=== PATIENT | female | born 1965 | race African-American/Black ===

== ENCOUNTER 2016-08-25 21:06 | Emergency (ER) | payer MEDICAID ==
[~2016-08-25] VITALS: Ht 162.6 cm; Wt 73.0 kg
[~2016-08-25 21:06] MED LIST: AMLO10TA80 PO; ATROVENT INH; FLUT1DIS3 IH; HYDR-519 PO; IPRA3AMP9 INH; P50 PO; THEO200T37 PO; singular PO
[2016-08-25] MEDS ORDERED: ALBUTEROL (0.083%) 2.5MG/3ML NEB HHN STA ×2 (21:34→22:46)
[2016-08-25 22:10] LABS: EOSINOPHILS % 4.5 % (0.0-5.0); HEMATOCRIT. 34.9 % (36.0-48.0); HEMOGLOBIN. 11.2 g/dL (12.0-16.0); LYMPHOCYTES % 17.2 % (20.0-50.0); MEAN CORPUSCULAR HEMOGLOBIN 27.9 pg (28.0-32.0); MEAN CORPUSCULAR HGB CONC 32.1 g/dL (31.0-37.0); MEAN CORPUSCULAR VOLUME 86.9 fL (81.0-99.0); MEAN PLATELET VOLUME 8.9 fl (7.4-10.4); MONOCYTES % 8.8 % (2.0-8.0); NEUTROPHILS % 68.5 % (40.0-76.0); PLATELET 209 x1000/uL (130-400); RED BLOOD CELL COUNT 4.01 mill/uL (4.2-5.4); RED CELL DISTRIBUTION WIDTH 15.8 % (11.6-14.6); WHITE BLOOD COUNT 7.1 x1000/uL (4.5-11.0)
[2016-08-25 22:17] LABS: ALBUMIN 3.2 g/dL (3.4-5.0); ANION GAP 9; CALCIUM 8.8 mg/dL (8.5-10.1); CARBON DIOXIDE 37 mEq/L (21-32); CHLORIDE 98 mEq/L (98-107); INDEX HEMOLYSI 1 (1-3); INDEX ICTERIC 1 (1-4); INDEX LIPEMIC 1 (1-3); UREA NITROGEN BLOOD 5 mg/dL (7-21)
[2016-08-25 22:22] LABS: ALANINE AMINOTRANSFERASE 7 IU/L (13-61); THEOPHYLLINE 5.8 ug/mL (10-20); eGFR > 60 mL/min (>60)
[2016-08-25 22:24] LABS: NT PRO B-TYPE NATRIURETIC PEP 323 pg/mL (5-125); TROPONIN I < 0.02 ng/mL (0.00-0.04)
[2016-08-25] MEDS ORDERED: IPRATROPIUM BROMIDE (0.02%) 0.5MG/2.5ML NEB HHN STA (22:46)
[2016-08-25] MEDS ORDERED: SODIUM CHLORIDE 0.9% 1,000 ML IV ONE (22:46)
[2016-08-25] MEDS ORDERED: DEXAMETHASONE 10MG/ML 1ML VIAL IV ONE (23:00)
[2016-08-25] MEDS ORDERED: IPRATROPIUM/ALBUTEROL 0.5-3(2.5)MG/3ML NEB ONE (23:15)
[2016-08-25] MEDS ORDERED: IPRATROPIUM BROMIDE (0.02%) 0.5MG/2.5ML NEB ONE (23:15)
[2016-08-26 01:59] VITALS: BP 101/62
== END 2016-08-26 02:04 | disposition home or self-care (01) ==
LOC: ER 21:06
DX: J44.9 Chronic obstructive pulmonary disease, unspecified (principal); R53.1 Weakness; T50.905A Adverse effect of unspecified drugs, medicaments and biological substances, initial encounter; Z79.899 Other long term (current) drug therapy; Y92.89 Other specified places as the place of occurrence of the external cause
CPT/HCPCS: 36415; 71010; 80053; 80198; 83880; 84484; 85025; 93005; 94640; 96361; 96374; 99285; J1100; J7611; Z7610; J7030; J7620

== ENCOUNTER 2016-08-27 22:27 | Inpatient (IN) | payer MEDICAID, OTHER ==
[~2016-08-27] VITALS: Ht 175.3 cm; Wt 72.1 kg
[2016-08-27] MEDS ORDERED: ALBUTEROL (0.083%) 2.5MG/3ML NEB HHN STA (23:20)
[2016-08-27] MEDS ORDERED: IPRATROPIUM BROMIDE (0.02%) 0.5MG/2.5ML NEB HHN STA (23:20)
[2016-08-27 23:51] LABS: BASOPHILS % 1.1 % (0.0-2.0); EOSINOPHILS % 5.1 % (0.0-5.0); HEMATOCRIT. 34.2 % (36.0-48.0); LYMPHOCYTES % 28.4 % (20.0-50.0); MEAN CORPUSCULAR HEMOGLOBIN 27.7 pg (28.0-32.0); MEAN CORPUSCULAR VOLUME 86.3 fL (81.0-99.0); MEAN PLATELET VOLUME 9.2 fl (7.4-10.4); MONOCYTES % 8.2 % (2.0-8.0); NEUTROPHILS % 57.2 % (40.0-76.0); PLATELET 201 x1000/uL (130-400); RED BLOOD CELL COUNT 3.96 mill/uL (4.2-5.4); RED CELL DISTRIBUTION WIDTH 15.7 % (11.6-14.6); WHITE BLOOD COUNT 7.1 x1000/uL (4.5-11.0)
[2016-08-28 00:02] LABS: BG BASE EXCESS 7.1 mmol/L (-2.0-2.0); BG CARBOXYHEMOGLOBIN 0.5 % (0.5-1.5); BG DEOXYHEMOGLOBIN 3.8 % (0.0-5.0); BG FRACTION INSPIRED OXYGEN 28; BG HCO3 ACT 34.7 mmol/L (22.0-26.0); BG METHEMOGLOBIN 0.2 % (0.0-1.5); BG OXYGEN SATURATION 96.2 % (92.0-98.5); BG OXYHEMOGLOBIN 95.5 % (94.0-97.0); BG PH 7.345 (7.350-7.450); BG PO2 91.8 mmHg (75.0-100.0); BG SAMPLE SITE RIGHT BRACHIAL; BG VENT MODE NASAL CANNULA
[2016-08-28 00:09] LABS: ANION GAP 8; CALCIUM 8.9 mg/dL (8.5-10.1); CARBON DIOXIDE 35 mEq/L (21-32); CHLORIDE 101 mEq/L (98-107); UREA NITROGEN BLOOD 8 mg/dL (7-21); eGFR > 60 mL/min (>60)
[2016-08-28 00:10] LABS: NT PRO B-TYPE NATRIURETIC PEP 354 pg/mL (5-125); TROPONIN I < 0.02 ng/mL (0.00-0.04)
[2016-08-28 00:12] LABS: INDEX HEMOLYSI 1 (1-3); INDEX ICTERIC 1 (1-4); INDEX LIPEMIC 1 (1-3)
[2016-08-28] MEDS ORDERED: HYDROCODONE/ACETAMINOPHEN 5/325MG TABLET PO ONE (05:15)
[2016-08-28 12:07] VITALS: BP 97/65
[2016-08-28 13:38] VITALS: BP 101/60
[2016-08-28 15:34] VITALS: BP 99/60
[2016-08-28] MEDS ORDERED: DIPHENHYDRAMINE 50MG/ML VIAL IV PRN (18:00)
[2016-08-28] MEDS ORDERED: IPRATROPIUM/ALBUTEROL 0.5-3(2.5)MG/3ML NEB INH PRN (18:00)
[2016-08-28] MEDS ORDERED: CLONIDINE 0.1MG TABLET PO PRN (18:00)
[2016-08-28] MEDS ORDERED: ONDANSETRON HCL 4MG/2ML VIAL IV PRN (18:00)
[2016-08-28] MEDS ORDERED: ACETAMINOPHEN 325MG TABLET PO PRN (18:00)
[2016-08-28] MEDS ORDERED: HYDROCODONE/ACETAMINOPHEN 5/325MG TABLET PO PRN (18:00)
[2016-08-28] MEDS ORDERED: METHYLPREDNISOLONE SOD SUCC 125 MG/2 ML VIAL IV SCH (18:30)
[2016-08-28 20:00] VITALS: BP 110/65
[2016-08-28] MEDS: IPRATROPIUM/ALBUTEROL 0.5-3(2.5)MG/3ML NEB INH SCH (20:25)
[2016-08-28] MEDS: METHYLPREDNISOLONE SOD SUCC 40 MG/ML VIAL IV SCH (21:24)
[2016-08-28] MEDS: HYDROCODONE/ACETAMINOPHEN 10/325MG TABLET PO PRN (21:32)
[2016-08-29] VITALS: BP 101/62
[2016-08-29] MEDS: IPRATROPIUM/ALBUTEROL 0.5-3(2.5)MG/3ML NEB INH SCH ×6 (00:42→20:30)
[2016-08-29 04:00] VITALS: BP 118/60
[2016-08-29] MEDS: HYDROCODONE/ACETAMINOPHEN 10/325MG TABLET PO PRN ×3 (04:13→18:23)
[2016-08-29] MEDS: METHYLPREDNISOLONE SOD SUCC 40 MG/ML VIAL IV SCH (06:00)
[2016-08-29 06:16] LABS: BASOPHILS % 0.4 % (0.0-2.0); EOSINOPHILS % 0.1 % (0.0-5.0); HEMATOCRIT. 33.7 % (36.0-48.0); HEMOGLOBIN. 10.7 g/dL (12.0-16.0); MEAN CORPUSCULAR HEMOGLOBIN 27.6 pg (28.0-32.0); MEAN CORPUSCULAR HGB CONC 31.7 g/dL (31.0-37.0); MEAN PLATELET VOLUME 9.4 fl (7.4-10.4); MONOCYTES % 1.8 % (2.0-8.0); NEUTROPHILS % 87.7 % (40.0-76.0); PLATELET 192 x1000/uL (130-400); RED BLOOD CELL COUNT 3.88 mill/uL (4.2-5.4); RED CELL DISTRIBUTION WIDTH 15.3 % (11.6-14.6); WHITE BLOOD COUNT 4.2 x1000/uL (4.5-11.0)
[2016-08-29 07:08] LABS: ALANINE AMINOTRANSFERASE 12 IU/L (13-61); ALBUMIN 2.9 g/dL (3.4-5.0); ANION GAP 9; CALCIUM 8.7 mg/dL (8.5-10.1); CARBON DIOXIDE 36 mEq/L (21-32); CHLORIDE 98 mEq/L (98-107); INDEX HEMOLYSI 1 (1-3); INDEX ICTERIC 1 (1-4); INDEX LIPEMIC 1 (1-3); UREA NITROGEN BLOOD 7 mg/dL (7-21); eGFR > 60 mL/min (>60)
[2016-08-29 08:00] VITALS: BP 100/57
[2016-08-29] MEDS: BUDESONIDE 0.5MG/2ML NEB HHN SCH ×3 (08:40→20:30)
[2016-08-29] MEDS ORDERED: MEDICATION NOT ON FORMULARY EA (Fluticasone/Salmeterol (Advair 250-50 Diskus) 1 DISK) IH SCH (09:00)
[2016-08-29] MEDS: AMLODIPINE 10MG TABLET PO SCH (09:00)
[2016-08-29 12:00] VITALS: BP 106/61
[2016-08-29] MEDS: DEXAMETHASONE 4MG/ML 1ML VIAL IV SCH ×2 (12:48→18:21)
[2016-08-29 16:00] VITALS: BP 108/60
[2016-08-29 20:38] VITALS: BP 95/69
[2016-08-30] VITALS (7 sets, daily range): BP systolic 95–117; BP diastolic 50–71
[2016-08-30] MEDS: DEXAMETHASONE 4MG/ML 1ML VIAL IV SCH ×5 (00:14→23:23)
[2016-08-30] MEDS: IPRATROPIUM/ALBUTEROL 0.5-3(2.5)MG/3ML NEB INH SCH ×6 (00:25→20:02)
[2016-08-30] MEDS: HYDROCODONE/ACETAMINOPHEN 10/325MG TABLET PO PRN ×2 (00:26→14:04)
[2016-08-30] MEDS: BUDESONIDE 0.5MG/2ML NEB HHN SCH ×2 (08:21→20:02)
[2016-08-30] MEDS: AMLODIPINE 10MG TABLET PO SCH (09:00)
[2016-08-30] MEDS ORDERED: DEXAMETHASONE 4MG/ML 1ML VIAL IV SCH (18:00)
[2016-08-31] VITALS: BP 107/59
[2016-08-31] MEDS: IPRATROPIUM/ALBUTEROL 0.5-3(2.5)MG/3ML NEB INH SCH ×6 (01:18→21:02)
[2016-08-31 04:00] VITALS: BP 106/67
[2016-08-31] MEDS: HYDROCODONE/ACETAMINOPHEN 10/325MG TABLET PO PRN (06:33)
[2016-08-31] MEDS: DEXAMETHASONE 4MG/ML 1ML VIAL IV SCH ×5 (06:33→23:09)
[2016-08-31 06:53] LABS: ANION GAP 8; CALCIUM 8.8 mg/dL (8.5-10.1); CARBON DIOXIDE 36 mEq/L (21-32); CHLORIDE 98 mEq/L (98-107); INDEX HEMOLYSI 1 (1-3); INDEX ICTERIC 1 (1-4); INDEX LIPEMIC 1 (1-3); UREA NITROGEN BLOOD 7 mg/dL (7-21); eGFR > 60 mL/min (>60)
[2016-08-31 07:18] LABS: HEMATOCRIT. 32.2 % (36.0-48.0); HEMOGLOBIN. 10.4 g/dL (12.0-16.0); MEAN CORPUSCULAR HEMOGLOBIN 27.3 pg (28.0-32.0); MEAN CORPUSCULAR HGB CONC 32.4 g/dL (31.0-37.0); MEAN CORPUSCULAR VOLUME 84.5 fL (81.0-99.0); MEAN PLATELET VOLUME 9.5 fl (7.4-10.4); PLATELET 195 x1000/uL (130-400); RED BLOOD CELL COUNT 3.81 mill/uL (4.2-5.4); RED CELL DISTRIBUTION WIDTH 15.8 % (11.6-14.6); WHITE BLOOD COUNT 7.2 x1000/uL (4.5-11.0)
[2016-08-31 07:35] LABS: DIFFERENTIAL COMMENT 1
[2016-08-31 07:51] VITALS: BP 103/60
[2016-08-31] MEDS: BUDESONIDE 0.5MG/2ML NEB HHN SCH ×3 (08:00→21:01)
[2016-08-31] MEDS: AMLODIPINE 10MG TABLET PO SCH (09:00)
[2016-08-31 11:59] VITALS: BP 100/60
[2016-08-31 16:00] VITALS: BP 99/62
[2016-08-31 20:00] VITALS: BP 102/65
[2016-08-31 20:49] LABS: GIANT PLATELETS FEW; PLATELET ESTIMATE NORMAL
[2016-08-31 20:50] LABS: ANISOCYTOSIS 1+; HYPOCHROMASIA 1+
[2016-09-01] VITALS: BP 94/60
[2016-09-01] MEDS: HYDROCODONE/ACETAMINOPHEN 10/325MG TABLET PO PRN ×2 (00:21→21:37)
[2016-09-01] MEDS: IPRATROPIUM/ALBUTEROL 0.5-3(2.5)MG/3ML NEB INH SCH ×5 (00:45→20:20)
[2016-09-01 04:00] VITALS: BP 102/71
[2016-09-01] MEDS: DEXAMETHASONE 4MG/ML 1ML VIAL IV SCH ×3 (05:25→18:35)
[2016-09-01 08:00] VITALS: BP 105/57
[2016-09-01] MEDS: AMLODIPINE 10MG TABLET PO SCH (08:55)
[2016-09-01] MEDS: BUDESONIDE 0.5MG/2ML NEB HHN SCH (09:14)
[2016-09-01 12:06] VITALS: BP 103/61
[2016-09-01 16:00] VITALS: BP 92/50
[2016-09-01 20:00] VITALS: BP 104/69
[2016-09-02] VITALS: BP 97/57
[2016-09-02] MEDS: IPRATROPIUM/ALBUTEROL 0.5-3(2.5)MG/3ML NEB INH SCH ×3 (00:05→08:00)
[2016-09-02] MEDS: DEXAMETHASONE 4MG/ML 1ML VIAL IV SCH ×2 (01:32→06:31)
[2016-09-02 04:00] VITALS: BP 103/60
[2016-09-02 08:00] VITALS: BP 101/59
[2016-09-02] MEDS: AMLODIPINE 10MG TABLET PO SCH (09:00)
[2016-09-02 09:16] LABS: HEMATOCRIT. 35.5 % (36.0-48.0); HEMOGLOBIN. 11.4 g/dL (12.0-16.0); MEAN CORPUSCULAR HEMOGLOBIN 27.5 pg (28.0-32.0); MEAN CORPUSCULAR VOLUME 85.7 fL (81.0-99.0); MEAN PLATELET VOLUME 9.4 fl (7.4-10.4); PLATELET 210 x1000/uL (130-400); RED BLOOD CELL COUNT 4.14 mill/uL (4.2-5.4); WHITE BLOOD COUNT 9.3 x1000/uL (4.5-11.0)
[2016-09-02 09:21] LABS: DIFFERENTIAL COMMENT 1
[2016-09-02 09:26] LABS: ANION GAP 11; CARBON DIOXIDE 34 mEq/L (21-32); CHLORIDE 99 mEq/L (98-107); INDEX HEMOLYSI 1 (1-3); INDEX ICTERIC 1 (1-4); INDEX LIPEMIC 1 (1-3); UREA NITROGEN BLOOD 9 mg/dL (7-21); eGFR > 60 mL/min (>60)
[2016-09-02 11:25] LABS: PLATELET ESTIMATE NORMAL
[2016-09-02 12:00] VITALS: BP 96/57
[2016-09-02 14:06] VITALS: BP 96/57
[2016-09-17] MEDS ORDERED: IPRA3AMP9 INH (14:40)
[2016-09-17] MEDS ORDERED: METH4TAB17 PO (14:40)
[2016-09-17] MEDS ORDERED: singular PO (14:40)
[2016-09-17] MEDS ORDERED: FLUT1DIS3 IH (14:40)
[2016-09-17] MEDS ORDERED: AMLO10TA80 PO (14:40)
== END 2016-09-02 14:35 | disposition home or self-care (01) | DRG 140 ==
LOC: ER 22:28 → 6WST 08-28 05:18
PROVIDERS: ADMIT Internal Medicine; ATTEND Internal Medicine
DX: J44.1 Chronic obstructive pulmonary disease with (acute) exacerbation (principal); J96.00 Acute respiratory failure, unspecified whether with hypoxia or hypercapnia; E11.65 Type 2 diabetes mellitus with hyperglycemia; Z99.81 Dependence on supplemental oxygen; I10 Essential (primary) hypertension; D64.9 Anemia, unspecified; F20.0 Paranoid schizophrenia; Z87.891 Personal history of nicotine dependence; Z91.14 Patient's other noncompliance with medication regimen; Z79.899 Other long term (current) drug therapy
CPT/HCPCS: 36415; 36600; 71010; 80048; 80053; 82375; 82805; 83605; 83880; 84484; 85025; 87040; 87086; 93005; 93970; 94640; 94664; 99285; C1893; J1100; J1200; J2920; J7611; J7620; J7626

== ENCOUNTER 2016-10-13 18:48 | Emergency (ER) | payer MEDICAID, OTHER ==
[~2016-10-13] VITALS: Ht 177.8 cm; Wt 80.0 kg
[~2016-10-13 18:48] MED LIST changes: -ATROVENT INH; +METH4TAB17 PO; -P50 PO
[2016-10-13] MEDS: PREDNISONE 20MG TABLET PO STA (19:23)
[2016-10-13] MEDS: ALBUTEROL (0.083%) 2.5MG/3ML NEB HHN STA (19:30)
[2016-10-13] MEDS: IPRATROPIUM BROMIDE (0.02%) 0.5MG/2.5ML NEB HHN STA (19:30)
[2016-10-13] MEDS: HYDROCODONE/ACETAMINOPHEN 5/325MG TABLET PO ONE (19:45)
[2016-10-13] MEDS: KETOROLAC 60MG/2ML VIAL IM ONE (22:30)
[2016-10-13 22:49] LABS: CLARITY URINE CLEAR (CLEAR); COLOR URINE YELLOW (YELLOW); GLUCOSE URINE NEGATIVE (NEGATIVE); KETONES URINE NEGATIVE (NEGATIVE); LEUKOCYTE ESTERASE URINE NEGATIVE (NEGATIVE); NITRITE URINE NEGATIVE (NEGATIVE); OCCULT BLOOD URINE 1+ (NEGATIVE); PROTEIN URINE NEGATIVE (NEGATIVE); SPECIFIC GRAVITY URINE 1.018 (1.005-1.030); UROBILINOGEN URINE 0.2 E.U./dL (0.2-1.0)
[2016-10-13 23:13] LABS: BACTERIA URINE TRACE; RBC URINE 0-2 /hpf (0-2); SQUAMOUS EPITHELIAL CELL URINE FEW /lpf (RARE/1+); WBC URINE 0-2 /hpf (0-2)
[2016-10-14] MEDS ORDERED: KETOROLAC 60MG/2ML VIAL IM ONE (08:45)
[2016-10-14] MEDS ORDERED: KETOROLAC 30MG/ML VIAL ONE (09:07)
[2016-10-14] MEDS: KETOROLAC 30MG/ML VIAL IV ONE (09:31)
[2016-10-14 09:57] VITALS: BP 159/78
== END 2016-10-14 10:40 | disposition home or self-care (01) ==
LOC: ER 18:51
DX: R06.02 Shortness of breath (principal); J44.9 Chronic obstructive pulmonary disease, unspecified; J45.909 Unspecified asthma, uncomplicated; F41.9 Anxiety disorder, unspecified; Z90.49 Acquired absence of other specified parts of digestive tract; R10.9 Unspecified abdominal pain
CPT/HCPCS: 71010; 74176; 81001; 94640; 96372; 96374; 99285; J1885; J7512; J7611; Z7610

== ENCOUNTER 2016-10-22 11:52 | Emergency (ER) | payer MEDICAID, OTHER ==
[~2016-10-22] VITALS: Ht 177.8 cm; Wt 90.0 kg
[2016-10-22] MEDS ORDERED: KETOROLAC 30MG/ML VIAL IV STA (12:12)
[2016-10-22] MEDS ORDERED: SODIUM CHLORIDE 0.9% 1,000 ML IV ONE (12:12)
[2016-10-22] MEDS ORDERED: ALBUTEROL (0.5%) 2.5MG/0.5ML NEB HHN ONE (12:30)
[2016-10-22 12:40] LABS: BASOPHILS % 1.2 % (0.0-2.0); EOSINOPHILS % 2.5 % (0.0-5.0); HEMATOCRIT. 36.2 % (36.0-48.0); HEMOGLOBIN. 11.8 g/dL (12.0-16.0); LYMPHOCYTES % 21.4 % (20.0-50.0); MEAN CORPUSCULAR HEMOGLOBIN 26.5 pg (28.0-32.0); MEAN CORPUSCULAR VOLUME 81.6 fL (81.0-99.0); MEAN PLATELET VOLUME 8.8 fl (7.4-10.4); MONOCYTES % 9.5 % (2.0-8.0); NEUTROPHILS % 65.4 % (40.0-76.0); PLATELET 252 x1000/uL (130-400); RED BLOOD CELL COUNT 4.44 mill/uL (4.2-5.4); RED CELL DISTRIBUTION WIDTH 15.3 % (11.6-14.6)
[2016-10-22 12:47] LABS: INR 1.1; PROTHROMBIN TIME 11.4 sec
[2016-10-22 12:52] VITALS: BP 92/57
[2016-10-22 12:59] LABS: CARBON DIOXIDE 36 mEq/L (21-32); CHLORIDE 97 mEq/L (98-107)
== END 2016-10-22 14:34 | disposition home or self-care (01) ==
LOC: ER 12:14
DX: D25.9 Leiomyoma of uterus, unspecified (principal); F41.9 Anxiety disorder, unspecified; J45.909 Unspecified asthma, uncomplicated; J44.9 Chronic obstructive pulmonary disease, unspecified; Z90.49 Acquired absence of other specified parts of digestive tract
CPT/HCPCS: 36415; 74176; 80053; 81025; 85025; 85610; 96374; 99285; J1885; J7030; Z7610

== ENCOUNTER 2016-11-22 19:50 | Inpatient (IN) | payer MEDICAID, OTHER ==
[~2016-11-22] VITALS: Ht 177.8 cm; Wt 78.9 kg
[2016-11-22] MEDS ORDERED: ONDANSETRON HCL 4MG/2ML VIAL IV STA (20:18)
[2016-11-22] MEDS ORDERED: MORPHINE SULFATE 4 MG/ML CPJ (NOT FOR IM USE) IV STA (20:18)
[2016-11-22] MEDS ORDERED: METHYLPREDNISOLONE SOD SUCC 125 MG/2 ML VIAL IV STA (20:23)
[2016-11-22] MEDS ORDERED: IPRATROPIUM BROMIDE (0.02%) 0.5MG/2.5ML NEB HHN STA (20:23)
[2016-11-22] MEDS ORDERED: ALBUTEROL (0.083%) 2.5MG/3ML NEB HHN STA (20:23)
[2016-11-22 21:05] LABS: BASOPHILS % 0.5 % (0.0-2.0); EOSINOPHILS % 2.7 % (0.0-5.0); HEMATOCRIT. 33.4 % (36.0-48.0); HEMOGLOBIN. 10.7 g/dL (12.0-16.0); LYMPHOCYTES % 28.2 % (20.0-50.0); MEAN CORPUSCULAR HEMOGLOBIN 26.4 pg (28.0-32.0); MEAN CORPUSCULAR VOLUME 82.1 fL (81.0-99.0); MEAN PLATELET VOLUME 9.1 fl (7.4-10.4); MONOCYTES % 9.2 % (2.0-8.0); NEUTROPHILS % 59.4 % (40.0-76.0); PLATELET 174 x1000/uL (130-400); RED BLOOD CELL COUNT 4.08 mill/uL (4.2-5.4); RED CELL DISTRIBUTION WIDTH 15.3 % (11.6-14.6)
[2016-11-22 21:12] LABS: INR 1.1; PROTHROMBIN TIME 11.1 sec
[2016-11-22 21:14] LABS: CARBON DIOXIDE 39 mEq/L (21-32); CHLORIDE 98 mEq/L (98-107)
[2016-11-22 21:21] LABS: TROPONIN I < 0.02 ng/mL (0.00-0.04)
[2016-11-22 23:07] LABS: BG BASE EXCESS 5.3 mmol/L (-2.0-2.0); BG CARBOXYHEMOGLOBIN 0.1 % (0.5-1.5); BG DEOXYHEMOGLOBIN 6.1 % (0.0-5.0); BG FRACTION INSPIRED OXYGEN 28; BG HCO3 ACT 36.7 mmol/L (22.0-26.0); BG METHEMOGLOBIN 0.1 % (0.0-1.5); BG OXYGEN SATURATION 93.9 % (92.0-98.5); BG OXYHEMOGLOBIN 93.7 % (94.0-97.0); BG PCO2 102.6 mmHg (35.0-45.0); BG PH 7.171 (7.350-7.450); BG PO2 88.8 mmHg (75.0-100.0); BG SAMPLE SITE RIGHT RADIAL; BG TOTAL HEMOGLOBIN 11.6 g/dL (12.0-18.0); BG VENT MODE NASAL CANNULA
[2016-11-22] MEDS ORDERED: ONDANSETRON HCL 4MG/2ML VIAL IV PRN (23:15)
[2016-11-22] MEDS ORDERED: DOCUSATE SODIUM 100MG CAPSULE PO PRN (23:15)
[2016-11-22] MEDS ORDERED: IPRATROPIUM/ALBUTEROL 0.5-3(2.5)MG/3ML NEB INH PRN (23:15)
[2016-11-22] MEDS ORDERED: CLONIDINE 0.1MG TABLET PO PRN (23:15)
[2016-11-22] MEDS ORDERED: MAGNESIUM/ALUMINUM HYDROXIDE/SIMETHICONE 30ML UDC PO PRN (23:15)
[2016-11-22] MEDS ORDERED: ACETAMINOPHEN 325MG TABLET PO PRN (23:15)
[2016-11-22 23:51] LABS: CARBON DIOXIDE 38 mEq/L (21-32); CHLORIDE 99 mEq/L (98-107)
[2016-11-23] VITALS (22 sets, daily range): BP systolic 104–133; BP diastolic 28–81
[2016-11-23 00:02] LABS: BG BASE EXCESS 8.9 mmol/L (-2.0-2.0); BG BILEVEL POS AIRWAY PRESSURE 15/5; BG CARBOXYHEMOGLOBIN 0.3 % (0.5-1.5); BG DEOXYHEMOGLOBIN 0.2 % (0.0-5.0); BG FRACTION INSPIRED OXYGEN 100; BG HCO3 ACT 41.1 mmol/L (22.0-26.0); BG OXYGEN SATURATION 99.8 % (92.0-98.5); BG OXYHEMOGLOBIN 99.5 % (94.0-97.0); BG PCO2 116.6 mmHg (35.0-45.0); BG PH 7.165 (7.350-7.450); BG PO2 434.3 mmHg (75.0-100.0); BG SAMPLE SITE RIGHT RADIAL; BG TOTAL HEMOGLOBIN 11.6 g/dL (12.0-18.0); BG VENT MODE MASK - BIPAP
[2016-11-23 01:04] LABS: BG BASE EXCESS 7.9 mmol/L (-2.0-2.0); BG BILEVEL POS AIRWAY PRESSURE 20/5; BG CARBOXYHEMOGLOBIN 0.6 % (0.5-1.5); BG DEOXYHEMOGLOBIN 1.1 % (0.0-5.0); BG FRACTION INSPIRED OXYGEN 50; BG HCO3 ACT 40.8 mmol/L (22.0-26.0); BG METHEMOGLOBIN 0.4 % (0.0-1.5); BG OXYGEN SATURATION 98.9 % (92.0-98.5); BG OXYHEMOGLOBIN 97.9 % (94.0-97.0); BG PCO2 116.5 mmHg (35.0-45.0); BG PH 7.162 (7.350-7.450); BG PO2 176.4 mmHg (75.0-100.0); BG SAMPLE SITE RIGHT RADIAL; BG TOTAL HEMOGLOBIN 13.2 g/dL (12.0-18.0); BG VENT MODE MASK - BIPAP
[2016-11-23] MEDS ORDERED: KETOROLAC 15MG/ML VIAL IV ONE (01:30)
[2016-11-23 05:20] LABS: BG BILEVEL POS AIRWAY PRESSURE 20/5; BG CARBOXYHEMOGLOBIN 0.4 % (0.5-1.5); BG DEOXYHEMOGLOBIN 0.8 % (0.0-5.0); BG FRACTION INSPIRED OXYGEN 50; BG HCO3 ACT 35.6 mmol/L (22.0-26.0); BG METHEMOGLOBIN 0.5 % (0.0-1.5); BG OXYGEN SATURATION 99.2 % (92.0-98.5); BG OXYHEMOGLOBIN 98.3 % (94.0-97.0); BG PCO2 101.1 mmHg (35.0-45.0); BG PH 7.164 (7.350-7.450); BG PO2 213.1 mmHg (75.0-100.0); BG SAMPLE SITE RIGHT BRACHIAL; BG TOTAL HEMOGLOBIN 12.1 g/dL (12.0-18.0); BG VENT MODE MASK - BIPAP; BG VENT RATE 20 set
[2016-11-23] MEDS: METHYLPREDNISOLONE SOD SUCC 40 MG/ML VIAL IV SCH ×3 (06:28→22:53)
[2016-11-23 06:49] LABS: HEMATOCRIT. 35.2 % (36.0-48.0); HEMOGLOBIN. 11.2 g/dL (12.0-16.0); MEAN CORPUSCULAR HEMOGLOBIN 26.3 pg (28.0-32.0); MEAN CORPUSCULAR VOLUME 82.8 fL (81.0-99.0); MEAN PLATELET VOLUME 9.2 fl (7.4-10.4); PLATELET 170 x1000/uL (130-400); RED BLOOD CELL COUNT 4.25 mill/uL (4.2-5.4); RED CELL DISTRIBUTION WIDTH 15.8 % (11.6-14.6)
[2016-11-23 07:22] LABS: CREATINE KINASE 53 IU/L (26-192); CREATINE KINASE MB FRACTION < 0.5 ng/mL (0.5-3.6); HDL CHOLESTEROL 103 mg/dL (40-59); LDL CHOLESTEROL 68 mg/dL (5-100); TROPONIN I < 0.02 ng/mL (0.00-0.04)
[2016-11-23 07:52] LABS: PLATELET ESTIMATE NORMAL
[2016-11-23] MEDS: BUDESONIDE 0.5MG/2ML NEB HHN SCH ×2 (08:04→20:27)
[2016-11-23] MEDS: AZITHROMYCIN 500 MG TABLET PO SCH (08:29)
[2016-11-23] MEDS: ENOXAPARIN 40MG/0.4ML SYR SUBCUT SCH (08:30)
[2016-11-23 10:27] LABS: CLARITY URINE CLOUDY (CLEAR); COLOR URINE YELLOW (YELLOW); GLUCOSE URINE NEGATIVE (NEGATIVE); KETONES URINE NEGATIVE (NEGATIVE); LEUKOCYTE ESTERASE URINE NEGATIVE (NEGATIVE); NITRITE URINE NEGATIVE (NEGATIVE); OCCULT BLOOD URINE NEGATIVE (NEGATIVE); PROTEIN URINE NEGATIVE (NEGATIVE); SPECIFIC GRAVITY URINE 1.025 (1.005-1.030); UROBILINOGEN URINE 0.2 E.U./dL (0.2-1.0)
[2016-11-23] MEDS ORDERED: AMINOPHYLLINE 1,000 MG in SODIUM CHLORIDE 0.9% 210 ML IV SCH ×2 (10:30→12:00)
[2016-11-23 11:06] LABS: *AMPHETAMINES SCREEN URINE NEGATIVE (NEGATIVE); *BARBITURATES SCREEN URINE NEGATIVE (NEGATIVE); *BENZODIAZEPINES SCREEN URINE NEGATIVE (NEGATIVE); *COCAINE SCREEN URINE NEGATIVE (NEGATIVE); CANNABINOID URINE SCREEN NEGATIVE (NEGATIVE); METHADONE URINE SCREEN NEGATIVE (NEGATIVE); OPIATES URINE SCREEN PRESUMTIVE POSITIVE (NEGATIVE); PHENCYCLIDINE URINE SCREEN NEGATIVE (NEGATIVE)
[2016-11-23] MEDS: PANTOPRAZOLE SODIUM 40 MG/VIAL IV SCH (11:38)
[2016-11-23] MEDS: MORPHINE SULFATE 4 MG/ML CPJ (NOT FOR IM USE) IV PRN ×3 (12:08→20:22)
[2016-11-23] MEDS: IPRATROPIUM/ALBUTEROL 0.5-3(2.5)MG/3ML NEB HHN SCH ×3 (12:29→20:27)
[2016-11-23 15:45] LABS: BG BASE EXCESS 9.5 mmol/L (-2.0-2.0); BG BILEVEL POS AIRWAY PRESSURE 20/5; BG CARBOXYHEMOGLOBIN 0.6 % (0.5-1.5); BG DEOXYHEMOGLOBIN 1.9 % (0.0-5.0); BG FRACTION INSPIRED OXYGEN 35; BG HCO3 ACT 38.9 mmol/L (22.0-26.0); BG METHEMOGLOBIN 0.4 % (0.0-1.5); BG OXYGEN SATURATION 98.1 % (92.0-98.5); BG OXYHEMOGLOBIN 97.1 % (94.0-97.0); BG PCO2 84.7 mmHg (35.0-45.0); BG PO2 111.5 mmHg (75.0-100.0); BG SAMPLE SITE RIGHT BRACHIAL; BG TOTAL HEMOGLOBIN 11.3 g/dL (12.0-18.0); BG VENT MODE MASK - BIPAP; BG VENT RATE 20 set
[2016-11-23 16:33] LABS: CREATINE KINASE 33 IU/L (26-192); TROPONIN I < 0.02 ng/mL (0.00-0.04)
[2016-11-23] MEDS ORDERED: ATROV INH (17:56)
[2016-11-24] VITALS (19 sets, daily range): BP systolic 91–149; BP diastolic 41–73
[2016-11-24] MEDS: MORPHINE SULFATE 4 MG/ML CPJ (NOT FOR IM USE) IV PRN ×4 (00:27→17:56)
[2016-11-24] MEDS: IPRATROPIUM/ALBUTEROL 0.5-3(2.5)MG/3ML NEB HHN SCH ×6 (04:15→20:16)
[2016-11-24] MEDS: METHYLPREDNISOLONE SOD SUCC 40 MG/ML VIAL IV SCH ×3 (05:20→21:36)
[2016-11-24 08:25] LABS: BG BASE EXCESS 7.6 mmol/L (-2.0-2.0); BG BILEVEL POS AIRWAY PRESSURE 20/5; BG CARBOXYHEMOGLOBIN 0.3 % (0.5-1.5); BG DEOXYHEMOGLOBIN 1.4 % (0.0-5.0); BG HCO3 ACT 35.3 mmol/L (22.0-26.0); BG OXYGEN SATURATION 98.6 % (92.0-98.5); BG OXYHEMOGLOBIN 98.3 % (94.0-97.0); BG PCO2 67.8 mmHg (35.0-45.0); BG PH 7.335 (7.350-7.450); BG PO2 134.6 mmHg (75.0-100.0); BG SAMPLE SITE RIGHT RADIAL; BG TOTAL HEMOGLOBIN 11.1 g/dL (12.0-18.0); BG VENT MODE MASK - BIPAP; BG VENT RATE 20 set
[2016-11-24] MEDS: BUDESONIDE 0.5MG/2ML NEB HHN SCH ×2 (08:43→20:16)
[2016-11-24] MEDS: AZITHROMYCIN 500 MG TABLET PO SCH (09:05)
[2016-11-24] MEDS: PANTOPRAZOLE SODIUM 40 MG/VIAL IV SCH (09:06)
[2016-11-24] MEDS: ENOXAPARIN 40MG/0.4ML SYR SUBCUT SCH (09:06)
[2016-11-24 10:33] LABS: CARBON DIOXIDE 37 mEq/L (21-32); CHLORIDE 94 mEq/L (98-107); THEOPHYLLINE 10.3 ug/mL (10-20)
[2016-11-24] MEDS: THEOPHYLLINE ANHYDROUS 80 MG/15 ML 120ML PO SCH ×2 (15:29→21:33)
[2016-11-25] VITALS (10 sets, daily range): BP systolic 91–118; BP diastolic 52–80
[2016-11-25] MEDS: IPRATROPIUM/ALBUTEROL 0.5-3(2.5)MG/3ML NEB HHN SCH ×6 (01:06→20:38)
[2016-11-25] MEDS: MORPHINE SULFATE 4 MG/ML CPJ (NOT FOR IM USE) IV PRN ×4 (02:26→20:32)
[2016-11-25] MEDS: METHYLPREDNISOLONE SOD SUCC 40 MG/ML VIAL IV SCH ×2 (05:48→18:18)
[2016-11-25] MEDS: THEOPHYLLINE ANHYDROUS 80 MG/15 ML 120ML PO SCH ×3 (05:49→22:55)
[2016-11-25] MEDS: PANTOPRAZOLE SODIUM 40 MG/VIAL IV SCH (08:48)
[2016-11-25] MEDS: ENOXAPARIN 40MG/0.4ML SYR SUBCUT SCH (08:49)
[2016-11-25] MEDS: AZITHROMYCIN 500 MG TABLET PO SCH (08:50)
[2016-11-25 09:13] LABS: BG BASE EXCESS 13.5 mmol/L (-2.0-2.0); BG CARBOXYHEMOGLOBIN 0.7 % (0.5-1.5); BG DEOXYHEMOGLOBIN 2.5 % (0.0-5.0); BG FRACTION INSPIRED OXYGEN 28; BG HCO3 ACT 41.7 mmol/L (22.0-26.0); BG METHEMOGLOBIN 0.3 % (0.0-1.5); BG OXYGEN SATURATION 97.5 % (92.0-98.5); BG OXYHEMOGLOBIN 96.5 % (94.0-97.0); BG PCO2 74.9 mmHg (35.0-45.0); BG PH 7.363 (7.350-7.450); BG SAMPLE SITE RIGHT RADIAL; BG TOTAL HEMOGLOBIN 11.2 g/dL (12.0-18.0); BG VENT MODE NASAL CANNULA
[2016-11-25] MEDS ORDERED: LIDOCAINE HCL/PF 1% 2ML VIAL ONE (09:52)
[2016-11-25] MEDS: BUDESONIDE 0.5MG/2ML NEB HHN SCH ×2 (20:38→20:45)
[2016-11-26 00:06] VITALS: BP 108/68
[2016-11-26] MEDS: IPRATROPIUM/ALBUTEROL 0.5-3(2.5)MG/3ML NEB HHN SCH ×6 (00:37→21:49)
[2016-11-26] MEDS: MORPHINE SULFATE 4 MG/ML CPJ (NOT FOR IM USE) IV PRN ×4 (03:36→20:02)
[2016-11-26 04:00] VITALS: BP 110/59
[2016-11-26] MEDS: BUDESONIDE 0.5MG/2ML NEB HHN SCH (06:00)
[2016-11-26] MEDS: THEOPHYLLINE ANHYDROUS 80 MG/15 ML 120ML PO SCH ×3 (06:08→22:54)
[2016-11-26 08:00] VITALS: BP 107/63
[2016-11-26] MEDS: ENOXAPARIN 40MG/0.4ML SYR SUBCUT SCH (09:15)
[2016-11-26] MEDS: METHYLPREDNISOLONE SOD SUCC 40 MG/ML VIAL IV SCH ×2 (09:16→18:54)
[2016-11-26] MEDS: FAMOTIDINE 20MG/2ML VIAL IV SCH ×2 (09:16→22:54)
[2016-11-26] MEDS: AZITHROMYCIN 500 MG TABLET PO SCH (09:16)
[2016-11-26 12:00] VITALS: BP 99/65
[2016-11-26 16:00] VITALS: BP 107/66
[2016-11-26 20:01] VITALS: BP 132/61
[2016-11-27] VITALS: BP 128/65
[2016-11-27] MEDS: MORPHINE SULFATE 4 MG/ML CPJ (NOT FOR IM USE) IV PRN ×6 (00:34→23:40)
[2016-11-27] MEDS: IPRATROPIUM/ALBUTEROL 0.5-3(2.5)MG/3ML NEB HHN SCH ×5 (01:38→20:53)
[2016-11-27 04:00] VITALS: BP 145/85
[2016-11-27] MEDS: THEOPHYLLINE ANHYDROUS 80 MG/15 ML 120ML PO SCH ×3 (05:10→21:56)
[2016-11-27 09:19] VITALS: BP 102/68
[2016-11-27] MEDS: AZITHROMYCIN 500 MG TABLET PO SCH (09:31)
[2016-11-27] MEDS: FAMOTIDINE 20MG/2ML VIAL IV SCH ×2 (09:31→19:44)
[2016-11-27] MEDS: METHYLPREDNISOLONE SOD SUCC 40 MG/ML VIAL IV SCH (09:32)
[2016-11-27] MEDS: ENOXAPARIN 40MG/0.4ML SYR SUBCUT SCH (09:32)
[2016-11-27] MEDS ORDERED: PROMETHAZINE/DEXTROMETHORPHAN 6.25-15MG/5ML BOTTLE 120ML PO PRN (10:15)
[2016-11-27] MEDS ORDERED: SENNOSIDES/DOCUSATE SOD 8.6/50MG TABLET PO PRN (10:15)
[2016-11-27 12:33] VITALS: BP 102/64
[2016-11-27 16:38] VITALS: BP 113/72
[2016-11-27] MEDS: DOCUSATE SODIUM 100MG CAPSULE PO SCH (18:09)
[2016-11-27 20:00] VITALS: BP 101/49
[2016-11-28] VITALS: BP 111/61
[2016-11-28] MEDS: IPRATROPIUM/ALBUTEROL 0.5-3(2.5)MG/3ML NEB HHN SCH ×6 (01:01→20:38)
[2016-11-28 04:00] VITALS: BP 95/68
[2016-11-28] MEDS: MORPHINE SULFATE 4 MG/ML CPJ (NOT FOR IM USE) IV PRN ×2 (04:12→09:08)
[2016-11-28] MEDS: THEOPHYLLINE ANHYDROUS 80 MG/15 ML 120ML PO SCH ×3 (05:19→23:15)
[2016-11-28 06:56] LABS: HEMATOCRIT 34.4 % (36.0-48.0); HEMOGLOBIN 11.1 g/dL (12.0-16.0); MEAN CORPUSCULAR HEMOGLOBIN 26.9 pg (28.0-32.0); MEAN CORPUSCULAR VOLUME 83.2 fL (81.0-99.0); PLATELET 174 x1000/uL (130-400); RED BLOOD CELL COUNT 4.14 mill/uL (4.2-5.4); RED CELL DISTRIBUTION WIDTH 15.5 % (11.6-14.6)
[2016-11-28 08:02] VITALS: BP 95/56
[2016-11-28] MEDS ORDERED: METHYLPREDNISOLONE SOD SUCC 40 MG/ML VIAL IV SCH (09:00)
[2016-11-28] MEDS: DOCUSATE SODIUM 100MG CAPSULE PO SCH ×2 (09:05→18:05)
[2016-11-28] MEDS: FAMOTIDINE 20MG/2ML VIAL IV SCH ×2 (09:05→21:36)
[2016-11-28] MEDS: ENOXAPARIN 40MG/0.4ML SYR SUBCUT SCH (09:06)
[2016-11-28 12:00] VITALS: BP 90/66
[2016-11-28 16:00] VITALS: BP 96/60
[2016-11-28] MEDS: HYDROCODONE/ACETAMINOPHEN 5/325MG TABLET PO PRN ×2 (18:49→23:40)
[2016-11-28 20:00] VITALS: BP 100/60
[2016-11-29] VITALS: BP 116/71
[2016-11-29] MEDS: IPRATROPIUM/ALBUTEROL 0.5-3(2.5)MG/3ML NEB HHN SCH ×6 (00:06→21:26)
[2016-11-29 04:00] VITALS: BP 99/61
[2016-11-29] MEDS: THEOPHYLLINE ANHYDROUS 80 MG/15 ML 120ML PO SCH ×4 (05:59→21:14)
[2016-11-29] MEDS: HYDROCODONE/ACETAMINOPHEN 5/325MG TABLET PO PRN ×3 (06:16→18:57)
[2016-11-29] MEDS ORDERED: PREDNISONE 20MG TABLET PO SCH (07:50)
[2016-11-29 08:00] VITALS: BP 94/57
[2016-11-29] MEDS: FAMOTIDINE 20MG/2ML VIAL IV SCH ×2 (08:16→21:11)
[2016-11-29] MEDS: ENOXAPARIN 40MG/0.4ML SYR SUBCUT SCH (08:17)
[2016-11-29] MEDS: DOCUSATE SODIUM 100MG CAPSULE PO SCH ×2 (08:17→16:27)
[2016-11-29 12:00] VITALS: BP 92/61
[2016-11-29 16:00] VITALS: BP 102/69
[2016-11-29 20:00] VITALS: BP 106/68
[2016-11-30] VITALS: BP 97/71
[2016-11-30] MEDS: IPRATROPIUM/ALBUTEROL 0.5-3(2.5)MG/3ML NEB HHN SCH ×6 (00:34→20:42)
[2016-11-30] MEDS: HYDROCODONE/ACETAMINOPHEN 5/325MG TABLET PO PRN ×2 (01:01→08:23)
[2016-11-30 04:00] VITALS: BP 98/62
[2016-11-30] MEDS: THEOPHYLLINE ANHYDROUS 80 MG/15 ML 120ML PO SCH ×3 (05:30→21:07)
[2016-11-30 05:35] LABS: BASOPHILS % 0.2 % (0.0-2.0); EOSINOPHILS % 1.4 % (0.0-5.0); HEMATOCRIT. 32.3 % (36.0-48.0); HEMOGLOBIN. 10.2 g/dL (12.0-16.0); LYMPHOCYTES % 17.6 % (20.0-50.0); MEAN CORPUSCULAR HEMOGLOBIN 26.3 pg (28.0-32.0); MEAN CORPUSCULAR VOLUME 83.3 fL (81.0-99.0); MEAN PLATELET VOLUME 9.1 fl (7.4-10.4); MONOCYTES % 14.3 % (2.0-8.0); NEUTROPHILS % 66.5 % (40.0-76.0); PLATELET 180 x1000/uL (130-400); RED BLOOD CELL COUNT 3.87 mill/uL (4.2-5.4)
[2016-11-30 06:42] LABS: CARBON DIOXIDE 39 mEq/L (21-32); CHLORIDE 93 mEq/L (98-107); CREATINE KINASE 14 IU/L (26-192); CREATINE KINASE MB FRACTION < 0.5 ng/mL (0.5-3.6); HDL CHOLESTEROL 108 mg/dL (40-59); LDL CHOLESTEROL 44 mg/dL (5-100); THEOPHYLLINE 4.8 ug/mL (10-20); TROPONIN I < 0.02 ng/mL (0.00-0.04)
[2016-11-30 08:20] VITALS: BP 93/68
[2016-11-30] MEDS: FAMOTIDINE 20MG/2ML VIAL IV SCH ×2 (08:21→21:07)
[2016-11-30] MEDS: DOCUSATE SODIUM 100MG CAPSULE PO SCH ×2 (08:21→16:15)
[2016-11-30] MEDS: ENOXAPARIN 40MG/0.4ML SYR SUBCUT SCH (08:22)
[2016-11-30] MEDS: PREDNISONE 20MG TABLET PO SCH (08:22)
[2016-11-30 12:20] VITALS: BP 107/68
[2016-11-30] MEDS: MORPHINE SULFATE 4 MG/ML CPJ (NOT FOR IM USE) IV PRN ×2 (12:27→21:07)
[2016-11-30 18:03] VITALS: BP 101/63
[2016-11-30 19:44] LABS: GLUCOSE URINE NEGATIVE (NEGATIVE); KETONES URINE NEGATIVE (NEGATIVE); LEUKOCYTE ESTERASE URINE 2+ (NEGATIVE); NITRITE URINE NEGATIVE (NEGATIVE); OCCULT BLOOD URINE NEGATIVE (NEGATIVE); PROTEIN URINE NEGATIVE (NEGATIVE); SPECIFIC GRAVITY URINE 1.014 (1.005-1.030); UROBILINOGEN URINE 0.2 E.U./dL (0.2-1.0)
[2016-11-30 19:45] LABS: CLARITY URINE SL HAZY (CLEAR); COLOR URINE YELLOW (YELLOW)
[2016-11-30 20:00] VITALS: BP_SYST 100; BP_SYST 146; BP_DIAS 67; BP_DIAS 80
[2016-12-01] VITALS: BP 99/56
[2016-12-01] MEDS: MORPHINE SULFATE 4 MG/ML CPJ (NOT FOR IM USE) IV PRN ×5 (01:16→21:20)
[2016-12-01 04:00] VITALS: BP 98/55
[2016-12-01] MEDS: IPRATROPIUM/ALBUTEROL 0.5-3(2.5)MG/3ML NEB HHN SCH ×6 (04:00→21:10)
[2016-12-01] MEDS: THEOPHYLLINE ANHYDROUS 80 MG/15 ML 120ML PO SCH ×3 (05:42→21:19)
[2016-12-01 08:00] VITALS: BP 92/56
[2016-12-01 08:04] LABS: T4 FREE 0.96 ng/dL (0.76-1.46)
[2016-12-01] MEDS: FAMOTIDINE 20MG/2ML VIAL IV SCH ×2 (08:14→21:18)
[2016-12-01] MEDS: DOCUSATE SODIUM 100MG CAPSULE PO SCH ×2 (08:14→17:14)
[2016-12-01] MEDS: PREDNISONE 20MG TABLET PO SCH (08:14)
[2016-12-01] MEDS: ENOXAPARIN 40MG/0.4ML SYR SUBCUT SCH (08:20)
[2016-12-01 12:00] VITALS: BP 99/57
[2016-12-01 16:00] VITALS: BP 96/65
[2016-12-01 20:00] VITALS: BP 91/61
[2016-12-02] VITALS (7 sets, daily range): BP systolic 88–98; BP diastolic 58–62
[2016-12-02] MEDS: IPRATROPIUM/ALBUTEROL 0.5-3(2.5)MG/3ML NEB HHN SCH ×6 (01:07→20:48)
[2016-12-02] MEDS: MORPHINE SULFATE 4 MG/ML CPJ (NOT FOR IM USE) IV PRN ×3 (04:12→20:01)
[2016-12-02] MEDS: THEOPHYLLINE ANHYDROUS 80 MG/15 ML 120ML PO SCH ×3 (05:01→21:23)
[2016-12-02] MEDS: DOCUSATE SODIUM 100MG CAPSULE PO SCH ×2 (08:05→16:13)
[2016-12-02] MEDS: PREDNISONE 20MG TABLET PO SCH (08:05)
[2016-12-02] MEDS: FAMOTIDINE 20MG/2ML VIAL IV SCH ×2 (08:05→20:01)
[2016-12-02] MEDS: ENOXAPARIN 40MG/0.4ML SYR SUBCUT SCH (08:09)
[2016-12-03] VITALS: BP 102/52
[2016-12-03] MEDS: MORPHINE SULFATE 4 MG/ML CPJ (NOT FOR IM USE) IV PRN ×2 (00:48→05:03)
[2016-12-03 04:00] VITALS: BP 102/63
[2016-12-03] MEDS: IPRATROPIUM/ALBUTEROL 0.5-3(2.5)MG/3ML NEB HHN SCH ×4 (04:49→12:50)
[2016-12-03] MEDS: THEOPHYLLINE ANHYDROUS 80 MG/15 ML 120ML PO SCH ×2 (05:03→13:10)
[2016-12-03 07:28] LABS: BASOPHILS % 0.2 % (0.0-2.0); EOSINOPHILS % 1.9 % (0.0-5.0); HEMATOCRIT. 29.5 % (36.0-48.0); HEMOGLOBIN. 9.4 g/dL (12.0-16.0); LYMPHOCYTES % 23.5 % (20.0-50.0); MEAN CORPUSCULAR HEMOGLOBIN 26.8 pg (28.0-32.0); MEAN PLATELET VOLUME 8.9 fl (7.4-10.4); MONOCYTES % 13.5 % (2.0-8.0); NEUTROPHILS % 60.9 % (40.0-76.0); PLATELET 170 x1000/uL (130-400); RED CELL DISTRIBUTION WIDTH 16.3 % (11.6-14.6)
[2016-12-03 08:00] VITALS: BP 90/58
[2016-12-03 08:07] LABS: CARBON DIOXIDE 36 mEq/L (21-32); CHLORIDE 96 mEq/L (98-107)
[2016-12-03] MEDS: FAMOTIDINE 20MG/2ML VIAL IV SCH (08:23)
[2016-12-03] MEDS: DOCUSATE SODIUM 100MG CAPSULE PO SCH (08:23)
[2016-12-03] MEDS: ENOXAPARIN 40MG/0.4ML SYR SUBCUT SCH (08:23)
[2016-12-03] MEDS: PREDNISONE 20MG TABLET PO SCH (08:23)
[2016-12-03 12:00] VITALS: BP 96/58
[2016-12-03 13:48] VITALS: BP 96/58
== END 2016-12-03 15:38 | disposition home or self-care (01) | DRG 133 ==
LOC: ER 20:14 → CANRESERV 11-23 01:35 → ENRESERV 11-23 01:35 → CVICU 11-23 03:01 → ENRESERV 11-23 03:01 → EDBEDREQTM 11-23 03:05 → EDBEDREQSVC 11-23 03:05 → EDBEDREQ 11-23 03:05 → 5EST 11-24 12:15 → 6WST 11-25 14:55
PROVIDERS: ADMIT Internal Medicine; ATTEND Internal Medicine
PROC: 5A09457 Assistance with Respiratory Ventilation, 24-96 Consecutive Hours, Continuous Positive Airway Pressure (ICD-10-PCS; principal; 2016-11-22)
DX: J96.22 Acute and chronic respiratory failure with hypercapnia (principal); I47.2 Ventricular tachycardia; E87.2 Acidosis; Z99.81 Dependence on supplemental oxygen; J44.1 Chronic obstructive pulmonary disease with (acute) exacerbation; J45.901 Unspecified asthma with (acute) exacerbation; J96.21 Acute and chronic respiratory failure with hypoxia; R07.89 Other chest pain; R10.9 Unspecified abdominal pain; T48.6X5A Adverse effect of antiasthmatics, initial encounter; D72.829 Elevated white blood cell count, unspecified; F25.9 Schizoaffective disorder, unspecified; F42.9 Obsessive-compulsive disorder, unspecified; Z90.49 Acquired absence of other specified parts of digestive tract; Z91.14 Patient's other noncompliance with medication regimen; Z79.899 Other long term (current) drug therapy; Z87.891 Personal history of nicotine dependence; Y92.89 Other specified places as the place of occurrence of the external cause
CPT/HCPCS: 36415; 36600; 71010; 76705; 80048; 80053; 80061; 80198; 80305; 81001; 82375; 82550; 82553; 82805; 83735; 83880; 84439; 84443; 84481; 84484; 85025; 85027; 85379; 85610; 87070; 87086; 93005; 94640; 94660; 96374; 96375; 97116; 97162; 99291; A6261; C9113; J0280; J1650; J2270; J2405; J2920; J2930; J3490; J7050; J7512; J7611; J7620; J7626

== ENCOUNTER 2017-01-29 13:34 | Inpatient (IN) | payer MEDICAID ==
[~2017-01-29] VITALS: Ht 175.3 cm; Wt 68.5 kg
[~2017-01-29 13:34] MED LIST changes: -AMLO10TA80 PO; +ATROV INH; -IPRA3AMP9 INH; +PRED5TAB48 PO; -THEO200T37 PO; +THEO80SO4 PO; -singular PO
[2017-01-29] MEDS ORDERED: IPRATROPIUM BROMIDE (0.02%) 0.5MG/2.5ML NEB HHN STA (14:26)
[2017-01-29] MEDS ORDERED: ALBUTEROL (0.083%) 2.5MG/3ML NEB HHN STA (14:26)
[2017-01-29] MEDS ORDERED: METHYLPREDNISOLONE SOD SUCC 125 MG/2 ML VIAL IV STA (14:26)
[2017-01-29 15:47] LABS: BASOPHILS % 0.6 % (0.0-2.0); EOSINOPHILS % 1.1 % (0.0-5.0); HEMATOCRIT. 33.2 % (36.0-48.0); HEMOGLOBIN. 10.7 g/dL (12.0-16.0); LYMPHOCYTES % 15.6 % (20.0-50.0); MEAN CORPUSCULAR HEMOGLOBIN 27.1 pg (28.0-32.0); MEAN CORPUSCULAR VOLUME 83.5 fL (81.0-99.0); MEAN PLATELET VOLUME 8.5 fl (7.4-10.4); MONOCYTES % 11.8 % (2.0-8.0); NEUTROPHILS % 70.9 % (40.0-76.0); PLATELET 330 x1000/uL (130-400); RED BLOOD CELL COUNT 3.97 mill/uL (4.2-5.4); RED CELL DISTRIBUTION WIDTH 17.3 % (11.6-14.6)
[2017-01-29 15:56] LABS: INR 1.1; PROTHROMBIN TIME 11.1 sec (9.4-11.6)
[2017-01-29 16:01] LABS: CARBON DIOXIDE 38 mEq/L (21-32); CHLORIDE 97 mEq/L (98-107); TROPONIN I < 0.02 ng/mL (0.00-0.04)
[2017-01-29] MEDS ORDERED: IBUPROFEN 400MG TABLET PO ONE (16:15)
[2017-01-29] MEDS ORDERED: SODIUM CHLORIDE 0.9% 1,000 ML IV ONE (16:30)
[2017-01-29 16:52] LABS: CLARITY URINE CLOUDY (CLEAR); COLOR URINE YELLOW (YELLOW); GLUCOSE URINE NEGATIVE (NEGATIVE); KETONES URINE NEGATIVE (NEGATIVE); LEUKOCYTE ESTERASE URINE NEGATIVE (NEGATIVE); NITRITE URINE NEGATIVE (NEGATIVE); OCCULT BLOOD URINE NEGATIVE (NEGATIVE); PH URINE 6.5 (4.5-8.0); PROTEIN URINE NEGATIVE (NEGATIVE); UROBILINOGEN URINE 0.2 E.U./dL (0.2-1.0)
[2017-01-29 21:00] VITALS: BP 97/65
[2017-01-30] VITALS: BP_SYST 115
[2017-01-30] MEDS ORDERED: IPRATROPIUM/ALBUTEROL 0.5-3(2.5)MG/3ML NEB HHN PRN
[2017-01-30] MEDS: IPRATROPIUM/ALBUTEROL 0.5-3(2.5)MG/3ML NEB HHN SCH ×7 (01:33→23:58)
[2017-01-30] MEDS: LEVOFLOXACIN 500MG PREMIX 100 ML IV SCH (02:15)
[2017-01-30] MEDS: METHYLPREDNISOLONE SOD SUCC 40 MG/ML VIAL IV SCH ×2 (02:15→06:38)
[2017-01-30] MEDS: HYDROCODONE/ACETAMINOPHEN 5/325MG TABLET PO PRN (02:38)
[2017-01-30 04:00] VITALS: BP 92/50
[2017-01-30] MEDS: OMEPRAZOLE 20MG CAPSULE EXTENDED RELEASE PO SCH (06:38)
[2017-01-30 08:00] VITALS: BP 98/57
[2017-01-30] MEDS: BUDESONIDE 0.5MG/2ML NEB HHN SCH ×2 (08:08→09:00)
[2017-01-30] MEDS: ENOXAPARIN 40MG/0.4ML SYR SUBCUT SCH (08:46)
[2017-01-30] MEDS ORDERED: MEDICATION NOT ON FORMULARY EA (Fluticasone/Salmeterol (Advair 250-50 Diskus) 1 DISK) IH SCH (09:00)
[2017-01-30 12:00] VITALS: BP 96/56
[2017-01-30] MEDS ORDERED: THEOPHYLLINE ANHYDROUS 80 MG/15 ML 120ML PO SCH (14:00)
[2017-01-30 16:00] VITALS: BP 92/57
[2017-01-30] MEDS: GUAIFENESIN 200MG/10ML SUGAR FREE UDC PO PRN (17:41)
[2017-01-30] MEDS: PREDNISONE 20MG TABLET PO SCH (17:41)
[2017-01-30] MEDS ORDERED: MEGESTROL ACETATE 20MG TABLET PO SCH (18:00)
[2017-01-30 20:00] VITALS: BP 117/58
[2017-01-30] MEDS: MEGESTROL ACETATE 20MG TABLET PO SCH (20:11)
[2017-01-30] MEDS: THEOPHYLLINE ANHYDROUS 80 MG/15 ML 120ML PO SCH (21:55)
[2017-01-31] VITALS: BP 101/52
[2017-01-31] MEDS: MEGESTROL ACETATE 20MG TABLET PO SCH ×4 (00:04→17:21)
[2017-01-31] MEDS: LEVOFLOXACIN 500MG PREMIX 100 ML IV SCH (03:21)
[2017-01-31 04:00] VITALS: BP 130/80
[2017-01-31] MEDS: OMEPRAZOLE 20MG CAPSULE EXTENDED RELEASE PO SCH (06:47)
[2017-01-31] MEDS: THEOPHYLLINE ANHYDROUS 80 MG/15 ML 120ML PO SCH ×3 (06:47→21:28)
[2017-01-31] MEDS: HYDROCODONE/ACETAMINOPHEN 5/325MG TABLET PO PRN ×2 (06:49→15:51)
[2017-01-31 08:00] VITALS: BP 93/61
[2017-01-31] MEDS: IPRATROPIUM/ALBUTEROL 0.5-3(2.5)MG/3ML NEB HHN SCH ×4 (08:08→22:16)
[2017-01-31] MEDS: ENOXAPARIN 40MG/0.4ML SYR SUBCUT SCH (08:31)
[2017-01-31] MEDS: PREDNISONE 20MG TABLET PO SCH ×2 (08:31→17:21)
[2017-01-31] MEDS: GUAIFENESIN 200MG/10ML SUGAR FREE UDC PO PRN ×2 (08:37→15:50)
[2017-01-31 11:41] LABS: HEMATOCRIT 31.2 % (36.0-48.0); HEMOGLOBIN 9.8 g/dL (12.0-16.0); MEAN CORPUSCULAR HEMOGLOBIN 26.8 pg (28.0-32.0); MEAN CORPUSCULAR VOLUME 85.4 fL (81.0-99.0); PLATELET 282 x1000/uL (130-400); RED BLOOD CELL COUNT 3.65 mill/uL (4.2-5.4); RED CELL DISTRIBUTION WIDTH 17.7 % (11.6-14.6)
[2017-01-31 11:48] LABS: CHLORIDE 99 mEq/L (98-107)
[2017-01-31 11:50] VITALS: BP 92/46
[2017-01-31 11:58] LABS: CARBON DIOXIDE 38 mEq/L (21-32)
[2017-01-31 16:00] VITALS: BP 98/55
[2017-01-31 20:00] VITALS: BP 111/54
[2017-01-31] MEDS: BUDESONIDE 0.5MG/2ML NEB HHN SCH (20:30)
[2017-01-31] MEDS: METHYLPREDNISOLONE SOD SUCC 40 MG/ML VIAL IV SCH (21:28)
[2017-02-01] VITALS: BP 100/70
[2017-02-01] MEDS: IPRATROPIUM/ALBUTEROL 0.5-3(2.5)MG/3ML NEB HHN SCH ×6 (00:22→23:38)
[2017-02-01] MEDS: BUDESONIDE 0.5MG/2ML NEB HHN SCH ×2 (00:22→09:00)
[2017-02-01] MEDS: LEVOFLOXACIN 500MG PREMIX 100 ML IV SCH (03:09)
[2017-02-01 04:00] VITALS: BP 135/56
[2017-02-01] MEDS: METHYLPREDNISOLONE SOD SUCC 40 MG/ML VIAL IV SCH ×3 (05:18→21:00)
[2017-02-01] MEDS: THEOPHYLLINE ANHYDROUS 80 MG/15 ML 120ML PO SCH ×3 (05:18→22:06)
[2017-02-01] MEDS: MEGESTROL ACETATE 20MG TABLET PO SCH ×4 (05:19→17:39)
[2017-02-01 08:00] VITALS: BP 93/56
[2017-02-01] MEDS: ENOXAPARIN 40MG/0.4ML SYR SUBCUT SCH (09:04)
[2017-02-01] MEDS: FAMOTIDINE 20MG TABLET PO SCH ×2 (09:04→16:25)
[2017-02-01] MEDS: GUAIFENESIN 200MG/10ML SUGAR FREE UDC PO PRN ×3 (10:34→12:01)
[2017-02-01 12:04] VITALS: BP 94/60
[2017-02-01 16:17] VITALS: BP 106/60
[2017-02-01 20:00] VITALS: BP 107/66
[2017-02-02] VITALS: BP_SYST 115; BP_SYST 97; BP_DIAS 51; BP_DIAS 75
[2017-02-02] MEDS: LEVOFLOXACIN 500MG PREMIX 100 ML IV SCH (03:15)
[2017-02-02 04:03] VITALS: BP 104/56
[2017-02-02] MEDS: HYDROCODONE/ACETAMINOPHEN 5/325MG TABLET PO PRN (04:07)
[2017-02-02] MEDS: IPRATROPIUM/ALBUTEROL 0.5-3(2.5)MG/3ML NEB HHN SCH ×4 (04:21→12:26)
[2017-02-02] MEDS: METHYLPREDNISOLONE SOD SUCC 40 MG/ML VIAL IV SCH ×2 (05:00→12:00)
[2017-02-02] MEDS: MEGESTROL ACETATE 20MG TABLET PO SCH ×3 (06:00→12:00)
[2017-02-02] MEDS: THEOPHYLLINE ANHYDROUS 80 MG/15 ML 120ML PO SCH ×2 (06:09→13:56)
[2017-02-02 08:00] VITALS: BP 133/97
[2017-02-02] MEDS: FAMOTIDINE 20MG TABLET PO SCH (08:30)
[2017-02-02] MEDS: ENOXAPARIN 40MG/0.4ML SYR SUBCUT SCH (08:31)
[2017-02-02] MEDS: BUDESONIDE 0.5MG/2ML NEB HHN SCH (09:00)
[2017-02-02 12:04] VITALS: BP 129/95
[2017-02-02] MEDS ORDERED: METH4TAB17 PO (12:22)
[2017-02-02] MEDS ORDERED: THEO80SO4 PO (12:22)
[2017-02-02] MEDS ORDERED: ATROV INH (12:22)
[2017-02-02 13:38] VITALS: BP 129/95
[2017-02-26] MEDS ORDERED: P20 PO (11:37)
[2017-04-02] MEDS ORDERED: LORA1TAB PO (01:44)
[2017-04-02] MEDS ORDERED: METH4TAB17 PO (01:48)
[2017-04-02] MEDS ORDERED: solumedrol (01:50)
[2017-04-08] MEDS ORDERED: TRAM50TA73 PO (13:39)
[2017-04-08] MEDS ORDERED: P20 PO (13:39)
== END 2017-02-02 14:10 | disposition home or self-care (01) | DRG 133 ==
LOC: ER 16:07 → EDBEDREQ 16:19 → ENRESERV 19:25 → 8WST 20:57
PROVIDERS: ADMIT Internal Medicine; ATTEND Internal Medicine
DX: J96.20 Acute and chronic respiratory failure, unspecified whether with hypoxia or hypercapnia (principal); Z99.81 Dependence on supplemental oxygen; R65.10 Systemic inflammatory response syndrome (SIRS) of non-infectious origin without acute organ dysfunction; E44.0 Moderate protein-calorie malnutrition; J44.1 Chronic obstructive pulmonary disease with (acute) exacerbation; J45.901 Unspecified asthma with (acute) exacerbation; F20.9 Schizophrenia, unspecified; F42.9 Obsessive-compulsive disorder, unspecified; T38.0X5A Adverse effect of glucocorticoids and synthetic analogues, initial encounter; F31.9 Bipolar disorder, unspecified; Z68.22 Body mass index [BMI] 22.0-22.9, adult
CPT/HCPCS: 36415; 71010; 80053; 81001; 83605; 83690; 83880; 84484; 85025; 85027; 85610; 87040; 93005; 94640; 94664; 96361; 96374; 99285; J1650; J1956; J2920; J2930; J7030; J7040; J7512; J7611; J7620; J7626

== ENCOUNTER 2017-02-08 03:37 | Inpatient (IN) | payer MEDICAID, OTHER ==
[~2017-02-08] VITALS: Ht 180.3 cm; Wt 79.8 kg
[~2017-02-08 03:37] MED LIST changes: -HYDR-519 PO; -PRED5TAB48 PO
[2017-02-08 07:06] LABS: CARBON DIOXIDE 36 mEq/L (21-32); CHLORIDE 97 mEq/L (98-107)
[2017-02-08] MEDS ORDERED: METHYLPREDNISOLONE SOD SUCC 125 MG/2 ML VIAL IV NR (07:30)
[2017-02-08] MEDS ORDERED: MAGNESIUM 2 G PREMIX 50 ML IV NR (07:30)
[2017-02-08 07:42] LABS: BASOPHILS % 0.3 % (0.0-2.0); EOSINOPHILS % 2.8 % (0.0-5.0); HEMATOCRIT. 35.1 % (36.0-48.0); HEMOGLOBIN. 11.3 g/dL (12.0-16.0); LYMPHOCYTES % 18.4 % (20.0-50.0); MEAN CORPUSCULAR HEMOGLOBIN 26.8 pg (28.0-32.0); MEAN CORPUSCULAR VOLUME 83.5 fL (81.0-99.0); MEAN PLATELET VOLUME 8.7 fl (7.4-10.4); MONOCYTES % 9.6 % (2.0-8.0); NEUTROPHILS % 68.9 % (40.0-76.0); PLATELET 164 x1000/uL (130-400); RED CELL DISTRIBUTION WIDTH 17.5 % (11.6-14.6)
[2017-02-08 08:50] VITALS: BP 96/54
[2017-02-08] MEDS ORDERED: LORA1TAB PO (09:08)
[2017-02-08] MEDS ORDERED: DUONEB3 ML INH (09:08)
[2017-02-08] MEDS ORDERED: HYDR-519 PO (09:08)
[2017-02-08] MEDS ORDERED: PROM5SYR PO (09:08)
[2017-02-08] MEDS ORDERED: DOCUSATE SODIUM 100MG CAPSULE PO PRN (09:15)
[2017-02-08] MEDS ORDERED: MAGNESIUM/ALUMINUM HYDROXIDE/SIMETHICONE 30ML UDC PO PRN (09:15)
[2017-02-08] MEDS ORDERED: CLONIDINE 0.1MG TABLET PO PRN (09:15)
[2017-02-08] MEDS ORDERED: IPRATROPIUM/ALBUTEROL 0.5-3(2.5)MG/3ML NEB INH PRN (09:15)
[2017-02-08] MEDS ORDERED: ONDANSETRON HCL 4MG/2ML VIAL IV PRN (09:15)
[2017-02-08] MEDS ORDERED: GUAIFENESIN 200MG/10ML SUGAR FREE UDC PO PRN (09:15)
[2017-02-08] MEDS ORDERED: NA PHOS,M-B/NA PHOS,DI-BA ENEMA 118ML PR PRN (09:15)
[2017-02-08] MEDS ORDERED: KETOROLAC 30MG/ML VIAL IV PRN (09:15)
[2017-02-08] MEDS ORDERED: ACETAMINOPHEN 325MG TABLET PO PRN (09:15)
[2017-02-08] MEDS: FAMOTIDINE 20MG TABLET PO SCH ×2 (11:09→21:47)
[2017-02-08] MEDS: ENOXAPARIN 40MG/0.4ML SYR SUBCUT SCH (11:09)
[2017-02-08] MEDS: IPRATROPIUM/ALBUTEROL 0.5-3(2.5)MG/3ML NEB HHN SCH ×3 (11:50→20:00)
[2017-02-08 12:00] VITALS: BP 100/62
[2017-02-08] MEDS: LEVOFLOXACIN 500MG PREMIX 100 ML IV SCH (12:59)
[2017-02-08] MEDS: METHYLPREDNISOLONE SOD SUCC 125 MG/2 ML VIAL IV SCH ×2 (14:00→21:49)
[2017-02-08 16:00] VITALS: BP 93/57
[2017-02-08 20:00] VITALS: BP 96/53
[2017-02-08] MEDS ORDERED: ZOLPIDEM TARTRATE 5MG TABLET PO PRN (21:00)
[2017-02-08] MEDS: GUAIFENESIN 600MG ER TABLET PO SCH (21:47)
[2017-02-08 23:12] LABS: *AMPHETAMINES SCREEN URINE NEGATIVE (NEGATIVE); *BARBITURATES SCREEN URINE NEGATIVE (NEGATIVE); *BENZODIAZEPINES SCREEN URINE NEGATIVE (NEGATIVE); *COCAINE SCREEN URINE NEGATIVE (NEGATIVE); CANNABINOID URINE SCREEN NEGATIVE (NEGATIVE); METHADONE URINE SCREEN NEGATIVE (NEGATIVE); OPIATES URINE SCREEN PRESUMTIVE POSITIVE (NEGATIVE); PHENCYCLIDINE URINE SCREEN NEGATIVE (NEGATIVE)
[2017-02-09] VITALS: BP 94/53
[2017-02-09] MEDS: IPRATROPIUM/ALBUTEROL 0.5-3(2.5)MG/3ML NEB HHN SCH ×4 (01:11→12:00)
[2017-02-09 04:00] VITALS: BP 95/51
[2017-02-09] MEDS: METHYLPREDNISOLONE SOD SUCC 125 MG/2 ML VIAL IV SCH ×2 (06:00→14:00)
[2017-02-09 08:00] VITALS: BP 94/55
[2017-02-09] MEDS: GUAIFENESIN 600MG ER TABLET PO SCH (08:59)
[2017-02-09] MEDS: FAMOTIDINE 20MG TABLET PO SCH (08:59)
[2017-02-09] MEDS: ENOXAPARIN 40MG/0.4ML SYR SUBCUT SCH (09:01)
[2017-02-09] MEDS: LEVOFLOXACIN 500MG PREMIX 100 ML IV SCH (11:01)
[2017-02-09 11:37] VITALS: BP 102/56
[2017-02-09 12:00] VITALS: BP 101/56
[2017-02-26] MEDS ORDERED: P20 PO (11:37)
[2017-04-02] MEDS ORDERED: LORA1TAB PO (01:44)
[2017-04-02] MEDS ORDERED: METH4TAB17 PO (01:48)
[2017-04-02] MEDS ORDERED: solumedrol (01:50)
[2017-04-08] MEDS ORDERED: P20 PO (13:39)
[2017-04-08] MEDS ORDERED: TRAM50TA73 PO (13:39)
== END 2017-02-09 14:47 | disposition home or self-care (01) | DRG 140 ==
LOC: ER 03:37 → 7WST 05:30 → ENRESERV 07:51 → EDBEDREQ 07:57 → ENRESERV 10:45 → CANRESERV 10:45 → CANBEDREQ 23:47
PROVIDERS: ADMIT Internal Medicine; ATTEND Internal Medicine
DX: J44.1 Chronic obstructive pulmonary disease with (acute) exacerbation (principal); J96.00 Acute respiratory failure, unspecified whether with hypoxia or hypercapnia; F41.9 Anxiety disorder, unspecified; Z87.891 Personal history of nicotine dependence
CPT/HCPCS: 36415; 71010; 80048; 80305; 83036; 85025; 93005; 93970; 94640; 94664; 99285; J1650; J1956; J7620

== ENCOUNTER 2017-02-10 18:17 | Inpatient (IN) | payer MEDICAID ==
[~2017-02-10] VITALS: Ht 180.3 cm; Wt 68.9 kg
[~2017-02-10 18:17] MED LIST changes: +DUONEB3 ML INH; -FLUT1DIS3 IH; +HYDR-519 PO; +LORA1TAB PO; -METH4TAB17 PO; +PROM5SYR PO
[2017-02-10] MEDS ORDERED: ALBUTEROL (0.083%) 2.5MG/3ML NEB HHN STA (18:53)
[2017-02-10] MEDS ORDERED: IPRATROPIUM BROMIDE (0.02%) 0.5MG/2.5ML NEB HHN STA (18:53)
[2017-02-10] MEDS ORDERED: METHYLPREDNISOLONE SOD SUCC 125 MG/2 ML VIAL IV ONE (19:00)
[2017-02-10 19:37] LABS: BASOPHILS % 0.6 % (0.0-2.0); EOSINOPHILS % 3.2 % (0.0-5.0); HEMATOCRIT. 33.9 % (36.0-48.0); HEMOGLOBIN. 10.8 g/dL (12.0-16.0); LYMPHOCYTES % 14.5 % (20.0-50.0); MEAN CORPUSCULAR HEMOGLOBIN 26.6 pg (28.0-32.0); MEAN CORPUSCULAR VOLUME 83.7 fL (81.0-99.0); MEAN PLATELET VOLUME 9.2 fl (7.4-10.4); MONOCYTES % 8.3 % (2.0-8.0); NEUTROPHILS % 73.4 % (40.0-76.0); PLATELET 166 x1000/uL (130-400); RED BLOOD CELL COUNT 4.05 mill/uL (4.2-5.4); RED CELL DISTRIBUTION WIDTH 17.8 % (11.6-14.6)
[2017-02-10 19:44] LABS: CARBON DIOXIDE 36 mEq/L (21-32); CHLORIDE 98 mEq/L (98-107)
[2017-02-10 19:46] LABS: THEOPHYLLINE < 2.0 ug/mL (10-20); TROPONIN I < 0.02 ng/mL (0.00-0.04)
[2017-02-10] MEDS ORDERED: MORPHINE SULFATE 2 MG/ML CPJ (NOT FOR IM USE) IV ONE (20:45)
[2017-02-10] MEDS ORDERED: AZITHROMYCIN 500 MG in DEXT 5% WATER 250 ML IV SCH (21:00)
[2017-02-10] MEDS ORDERED: CEFTRIAXONE 2 G PREMIX 50 ML IV ONE (21:00)
[2017-02-10] MEDS ORDERED: MORPHINE SULFATE 4 MG/ML CPJ (NOT FOR IM USE) IV NR (21:00)
[2017-02-11 10:30] VITALS: BP 86/56
[2017-02-11 11:32] VITALS: BP 86/56
[2017-02-11 12:00] VITALS: BP 90/58
[2017-02-11] MEDS ORDERED: ACETAMINOPHEN 325MG TABLET PO PRN (12:45)
[2017-02-11] MEDS ORDERED: IPRATROPIUM/ALBUTEROL 0.5-3(2.5)MG/3ML NEB INH PRN (12:45)
[2017-02-11] MEDS ORDERED: ONDANSETRON HCL 4MG/2ML VIAL IV PRN (12:45)
[2017-02-11] MEDS ORDERED: DIPHENHYDRAMINE 50MG/ML VIAL IV PRN (12:45)
[2017-02-11] MEDS ORDERED: CLONIDINE 0.1MG TABLET PO PRN (12:45)
[2017-02-11] MEDS ORDERED: IPRATROPIUM/ALBUTEROL 0.5-3(2.5)MG/3ML NEB INH SCH (12:45)
[2017-02-11] MEDS: THEOPHYLLINE ANHYDROUS 80 MG/15 ML 120ML PO SCH ×2 (14:33→16:29)
[2017-02-11 16:00] VITALS: BP 102/59
[2017-02-11] MEDS: IPRATROPIUM/ALBUTEROL 0.5-3(2.5)MG/3ML NEB INH SCH ×2 (16:35→21:22)
[2017-02-11] MEDS: HYDROCODONE/ACETAMINOPHEN 5/325MG TABLET PO PRN ×2 (16:35→22:36)
[2017-02-11] MEDS: BUDESONIDE 0.5MG/2ML NEB HHN SCH (16:35)
[2017-02-11] MEDS: LEVOFLOXACIN 500MG PREMIX 100 ML IV SCH (17:39)
[2017-02-11 20:00] VITALS: BP 91/59
[2017-02-11] MEDS ORDERED: LORAZEPAM 1MG TABLET PO PRN (21:00)
[2017-02-12] VITALS: BP 98/60
[2017-02-12] MEDS: IPRATROPIUM/ALBUTEROL 0.5-3(2.5)MG/3ML NEB INH SCH ×5 (01:01→21:11)
[2017-02-12 04:00] VITALS: BP 112/61
[2017-02-12] MEDS: BUDESONIDE 0.5MG/2ML NEB HHN SCH ×2 (04:00→09:17)
[2017-02-12 07:01] LABS: BASOPHILS % 0.5 % (0.0-2.0); HEMATOCRIT. 29.3 % (36.0-48.0); HEMOGLOBIN. 9.6 g/dL (12.0-16.0); MEAN CORPUSCULAR HEMOGLOBIN 27.3 pg (28.0-32.0); MEAN CORPUSCULAR VOLUME 83.8 fL (81.0-99.0); MEAN PLATELET VOLUME 9.2 fl (7.4-10.4); MONOCYTES % 8.2 % (2.0-8.0); NEUTROPHILS % 68.3 % (40.0-76.0); PLATELET 144 x1000/uL (130-400); RED CELL DISTRIBUTION WIDTH 17.5 % (11.6-14.6)
[2017-02-12 07:03] LABS: CARBON DIOXIDE 37 mEq/L (21-32); CHLORIDE 99 mEq/L (98-107); HDL CHOLESTEROL 82 mg/dL (40-59); LDL CHOLESTEROL 57 mg/dL (5-100)
[2017-02-12 08:00] VITALS: BP 109/59
[2017-02-12] MEDS: THEOPHYLLINE ANHYDROUS 80 MG/15 ML 120ML PO SCH ×3 (09:00→16:52)
[2017-02-12 12:00] VITALS: BP 127/71
[2017-02-12] MEDS: HYDROCODONE/ACETAMINOPHEN 5/325MG TABLET PO PRN ×2 (13:35→17:51)
[2017-02-12 16:00] VITALS: BP 152/125
[2017-02-12] MEDS: LEVOFLOXACIN 500MG PREMIX 100 ML IV SCH (16:52)
[2017-02-12] MEDS: METHYLPREDNISOLONE SOD SUCC 40 MG/ML VIAL IV SCH ×3 (16:55→21:49)
[2017-02-12 20:00] VITALS: BP 101/61
[2017-02-12] MEDS: LORAZEPAM 1MG TABLET PO PRN (21:44)
[2017-02-13] VITALS: BP 105/60
[2017-02-13] MEDS: HYDROCODONE/ACETAMINOPHEN 5/325MG TABLET PO PRN ×3 (00:11→14:38)
[2017-02-13 04:00] VITALS: BP 95/53
[2017-02-13] MEDS: IPRATROPIUM/ALBUTEROL 0.5-3(2.5)MG/3ML NEB INH SCH ×6 (04:00→20:07)
[2017-02-13] MEDS: METHYLPREDNISOLONE SOD SUCC 40 MG/ML VIAL IV SCH ×2 (05:30→14:06)
[2017-02-13 07:48] LABS: HEMATOCRIT. 33.3 % (36.0-48.0); HEMOGLOBIN. 10.9 g/dL (12.0-16.0); MEAN CORPUSCULAR HEMOGLOBIN 27.5 pg (28.0-32.0); MEAN CORPUSCULAR VOLUME 83.9 fL (81.0-99.0); MEAN PLATELET VOLUME 9.1 fl (7.4-10.4); PLATELET 167 x1000/uL (130-400); RED BLOOD CELL COUNT 3.97 mill/uL (4.2-5.4); RED CELL DISTRIBUTION WIDTH 17.2 % (11.6-14.6)
[2017-02-13 07:51] VITALS: BP 95/62
[2017-02-13] MEDS: THEOPHYLLINE ANHYDROUS 80 MG/15 ML 120ML PO SCH ×3 (08:09→17:12)
[2017-02-13 08:30] LABS: CARBON DIOXIDE 38 mEq/L (21-32); CHLORIDE 96 mEq/L (98-107)
[2017-02-13 12:00] VITALS: BP 110/58
[2017-02-13 12:20] LABS: PLATELET ESTIMATE NORMAL
[2017-02-13 16:00] VITALS: BP 122/79
[2017-02-13] MEDS: PREDNISONE 20MG TABLET PO SCH (17:11)
[2017-02-13] MEDS: LEVOFLOXACIN 500MG PREMIX 100 ML IV SCH (17:12)
[2017-02-13 20:00] VITALS: BP 90/63
[2017-02-13] MEDS: LORAZEPAM 1MG TABLET PO PRN (21:19)
[2017-02-13] MEDS: HYDROCODONE/ACETAMINOPHEN 10/325MG TABLET PO PRN (21:25)
[2017-02-14] VITALS: BP 99/54
[2017-02-14 04:00] VITALS: BP 108/65
[2017-02-14] MEDS: IPRATROPIUM/ALBUTEROL 0.5-3(2.5)MG/3ML NEB INH SCH ×2 (05:16→09:00)
[2017-02-14 07:56] LABS: BASOPHILS % 0.3 % (0.0-2.0); EOSINOPHILS % 0.3 % (0.0-5.0); HEMATOCRIT. 31.8 % (36.0-48.0); HEMOGLOBIN. 10.3 g/dL (12.0-16.0); MEAN CORPUSCULAR HEMOGLOBIN 27.2 pg (28.0-32.0); MEAN CORPUSCULAR VOLUME 84.3 fL (81.0-99.0); MEAN PLATELET VOLUME 8.9 fl (7.4-10.4); MONOCYTES % 7.4 % (2.0-8.0); PLATELET 162 x1000/uL (130-400); RED BLOOD CELL COUNT 3.77 mill/uL (4.2-5.4); RED CELL DISTRIBUTION WIDTH 17.2 % (11.6-14.6)
[2017-02-14 08:00] VITALS: BP 101/61
[2017-02-14 08:12] LABS: CARBON DIOXIDE 38 mEq/L (21-32); CHLORIDE 97 mEq/L (98-107)
[2017-02-14] MEDS: PREDNISONE 20MG TABLET PO SCH (08:51)
[2017-02-14] MEDS: THEOPHYLLINE ANHYDROUS 80 MG/15 ML 120ML PO SCH ×2 (08:52→13:32)
[2017-02-14] MEDS: HYDROCODONE/ACETAMINOPHEN 10/325MG TABLET PO PRN (08:52)
[2017-02-14 12:00] VITALS: BP 94/60
[2017-02-15] MEDS ORDERED: LEVOFLOXACIN 500MG TABLET PO SCH (11:00)
[2017-04-02] MEDS ORDERED: LORA1TAB PO (01:44)
[2017-04-02] MEDS ORDERED: METH4TAB17 PO (01:48)
[2017-04-02] MEDS ORDERED: solumedrol (01:50)
== END 2017-02-14 14:55 | disposition home or self-care (01) | DRG 133 ==
LOC: ER 18:41 → 7WST 02-11 00:31 → ENRESERV 02-11 07:55
PROVIDERS: ADMIT Internal Medicine; ATTEND Internal Medicine
DX: J96.00 Acute respiratory failure, unspecified whether with hypoxia or hypercapnia (principal); J18.9 Pneumonia, unspecified organism; R65.10 Systemic inflammatory response syndrome (SIRS) of non-infectious origin without acute organ dysfunction; J44.0 Chronic obstructive pulmonary disease with (acute) lower respiratory infection; Z99.81 Dependence on supplemental oxygen; E44.1 Mild protein-calorie malnutrition; J44.1 Chronic obstructive pulmonary disease with (acute) exacerbation; D64.9 Anemia, unspecified; F20.9 Schizophrenia, unspecified; F41.9 Anxiety disorder, unspecified; F42.9 Obsessive-compulsive disorder, unspecified; Z79.899 Other long term (current) drug therapy; Z90.49 Acquired absence of other specified parts of digestive tract; Z79.1 Long term (current) use of non-steroidal anti-inflammatories (NSAID)
CPT/HCPCS: 36415; 71010; 71250; 80048; 80053; 80061; 80198; 83605; 83690; 83880; 84484; 85025; 87040; 87086; 93005; 94640; 94664; 96365; 96375; 99285; J0456; J0696; J1956; J2270; J2920; J2930; J7050; J7060; J7512; J7611; J7620; J7626

== ENCOUNTER 2017-02-25 02:37 | Inpatient (IN) | payer MEDICAID ==
[~2017-02-25] VITALS: Ht 167.6 cm; Wt 76.7 kg
[2017-02-25] MEDS ORDERED: ALBUTEROL (0.083%) 2.5MG/3ML NEB HHN STA (02:59)
[2017-02-25] MEDS ORDERED: IPRATROPIUM BROMIDE (0.02%) 0.5MG/2.5ML NEB HHN STA (02:59)
[2017-02-25] MEDS ORDERED: METHYLPREDNISOLONE SOD SUCC 125 MG/2 ML VIAL IV STA (02:59)
[2017-02-25] MEDS ORDERED: MAGNESIUM 2 G PREMIX 50 ML IV ONE (03:00)
[2017-02-25] MEDS ORDERED: MORPHINE SULFATE 2 MG/ML CPJ (NOT FOR IM USE) IV ONE (03:15)
[2017-02-25] MEDS ORDERED: MORPHINE SULFATE 4 MG/ML CPJ (NOT FOR IM USE) IV SCH (03:17)
[2017-02-25 03:28] LABS: EOSINOPHILS % 3.8 % (0.0-5.0); HEMATOCRIT. 33.8 % (36.0-48.0); MEAN CORPUSCULAR HEMOGLOBIN 27.1 pg (28.0-32.0); MEAN CORPUSCULAR VOLUME 83.4 fL (81.0-99.0); MEAN PLATELET VOLUME 8.3 fl (7.4-10.4); MONOCYTES % 9.6 % (2.0-8.0); NEUTROPHILS % 65.6 % (40.0-76.0); PLATELET 214 x1000/uL (130-400); RED BLOOD CELL COUNT 4.05 mill/uL (4.2-5.4); RED CELL DISTRIBUTION WIDTH 16.6 % (11.6-14.6)
[2017-02-25 03:41] LABS: CARBON DIOXIDE 39 mEq/L (21-32); CHLORIDE 95 mEq/L (98-107); TROPONIN I < 0.02 ng/mL (0.00-0.04)
[2017-02-25 08:00] VITALS: BP 90/54
[2017-02-25 09:22] VITALS: BP 98/62
[2017-02-25 12:00] VITALS: BP 104/57
[2017-02-25] MEDS ORDERED: LORAZEPAM 2MG/ML CPJ IV PRN (12:15)
[2017-02-25] MEDS ORDERED: MORPHINE SULFATE 4 MG/ML CPJ (NOT FOR IM USE) IV PRN (12:15)
[2017-02-25] MEDS ORDERED: ONDANSETRON HCL 4MG/2ML VIAL IV PRN (12:15)
[2017-02-25] MEDS ORDERED: LORAZEPAM 1MG TABLET PO PRN (12:30)
[2017-02-25] MEDS ORDERED: MEDICATION NOT ON FORMULARY EA (Ipratropium Bromide (Atrovent Hfa) 2 PUFF) INH PRN (12:30)
[2017-02-25] MEDS ORDERED: BUDESONIDE 0.5MG/2ML NEB HHN SCH (13:00)
[2017-02-25] MEDS: METHYLPREDNISOLONE SOD SUCC 40 MG/ML VIAL IV SCH ×2 (13:23→20:37)
[2017-02-25] MEDS: HYDROCODONE/ACETAMINOPHEN 5/325MG TABLET PO PRN ×2 (13:25→20:45)
[2017-02-25] MEDS: IPRATROPIUM/ALBUTEROL 0.5-3(2.5)MG/3ML NEB HHN PRN ×3 (14:42→21:08)
[2017-02-25 16:00] VITALS: BP 91/51
[2017-02-25] MEDS: THEOPHYLLINE ANHYDROUS 80 MG/15 ML 120ML PO SCH (16:40)
[2017-02-25] MEDS: ENOXAPARIN 40MG/0.4ML SYR SUBCUT SCH (16:40)
[2017-02-25] MEDS ORDERED: HYDROCODONE/ACETAMINOPHEN 10/325MG TABLET PO SCH (17:00)
[2017-02-25] MEDS ORDERED: PROMETHAZINE HCL PO SCH (17:00)
[2017-02-25] MEDS ORDERED: [UNRECOGNIZED DRUG - OTHER] PO SCH (17:00)
[2017-02-25] MEDS ORDERED: THEOPHYLLINE ANHYDROUS 100MG TABLET SR 12HR PO SCH (17:00)
[2017-02-25] MEDS ORDERED: CODEINE PO SCH (17:00)
[2017-02-25 20:00] VITALS: BP 100/62
[2017-02-26 00:01] VITALS: BP 112/67
[2017-02-26 04:00] VITALS: BP 101/53
[2017-02-26] MEDS: HYDROCORTISONE SOD SUCCINATE 100 MG/2 ML VIAL IV SCH ×3 (05:51→14:00)
[2017-02-26 06:30] LABS: HEMATOCRIT. 31.9 % (36.0-48.0); HEMOGLOBIN. 10.3 g/dL (12.0-16.0); MEAN CORPUSCULAR HEMOGLOBIN 27.1 pg (28.0-32.0); MEAN CORPUSCULAR VOLUME 83.9 fL (81.0-99.0); MEAN PLATELET VOLUME 9.1 fl (7.4-10.4); PLATELET 224 x1000/uL (130-400); RED BLOOD CELL COUNT 3.81 mill/uL (4.2-5.4); RED CELL DISTRIBUTION WIDTH 16.1 % (11.6-14.6)
[2017-02-26 08:00] VITALS: BP 95/69
[2017-02-26 08:22] LABS: CARBON DIOXIDE 35 mEq/L (21-32); CHLORIDE 96 mEq/L (98-107)
[2017-02-26] MEDS: ENOXAPARIN 40MG/0.4ML SYR SUBCUT SCH (08:47)
[2017-02-26] MEDS: THEOPHYLLINE ANHYDROUS 80 MG/15 ML 120ML PO SCH ×2 (08:48→16:47)
[2017-02-26] MEDS ORDERED: P20 PO (11:37)
[2017-02-26 12:30] VITALS: BP 99/53
[2017-02-26 15:28] LABS: *AMPHETAMINES SCREEN URINE NEGATIVE (NEGATIVE); *BARBITURATES SCREEN URINE NEGATIVE (NEGATIVE); *BENZODIAZEPINES SCREEN URINE NEGATIVE (NEGATIVE); *COCAINE SCREEN URINE NEGATIVE (NEGATIVE); CANNABINOID URINE SCREEN NEGATIVE (NEGATIVE); METHADONE URINE SCREEN NEGATIVE (NEGATIVE); OPIATES URINE SCREEN PRESUMTIVE POSITIVE (NEGATIVE); PHENCYCLIDINE URINE SCREEN NEGATIVE (NEGATIVE)
[2017-02-26 16:00] VITALS: BP 109/66
[2017-02-26 20:00] VITALS: BP 105/62
[2017-02-26] MEDS: IPRATROPIUM/ALBUTEROL 0.5-3(2.5)MG/3ML NEB HHN PRN (22:12)
[2017-02-26 22:29] LABS: PLATELET ESTIMATE NORMAL
[2017-02-27] VITALS: BP 112/58
[2017-02-27] MEDS: HYDROCODONE/ACETAMINOPHEN 5/325MG TABLET PO PRN (00:42)
[2017-02-27 04:00] VITALS: BP 92/56
[2017-02-27 08:00] VITALS: BP 101/61
[2017-02-27] MEDS: ENOXAPARIN 40MG/0.4ML SYR SUBCUT SCH (10:00)
[2017-02-27] MEDS: THEOPHYLLINE ANHYDROUS 80 MG/15 ML 120ML PO SCH (10:00)
[2017-02-27 12:00] VITALS: BP 117/57
[2017-02-27] MEDS ORDERED: GUAIFENESIN-DM 200MG-20MG/10ML UDC PO PRN (12:15)
[2017-02-27] MEDS ORDERED: HYDROCORTISONE SOD SUCCINATE 100 MG/2 ML VIAL IV SCH (14:00)
[2017-02-27 15:37] VITALS: BP 117/51
[2017-04-02] MEDS ORDERED: LORA1TAB PO (01:44)
[2017-04-02] MEDS ORDERED: METH4TAB17 PO (01:48)
[2017-04-02] MEDS ORDERED: solumedrol (01:50)
== END 2017-02-27 17:00 | disposition home or self-care (01) | DRG 133 ==
LOC: ER 02:42 → 5WST 04:43 → EDBEDREQ 04:45 → ENRESERV 06:35
PROVIDERS: ADMIT Internal Medicine; ATTEND Internal Medicine
DX: J96.20 Acute and chronic respiratory failure, unspecified whether with hypoxia or hypercapnia (principal); J84.9 Interstitial pulmonary disease, unspecified; R65.10 Systemic inflammatory response syndrome (SIRS) of non-infectious origin without acute organ dysfunction; J44.1 Chronic obstructive pulmonary disease with (acute) exacerbation; Z99.81 Dependence on supplemental oxygen; F20.9 Schizophrenia, unspecified; F42.9 Obsessive-compulsive disorder, unspecified; Z87.891 Personal history of nicotine dependence; Z91.19 Patient's noncompliance with other medical treatment and regimen; Z90.49 Acquired absence of other specified parts of digestive tract
CPT/HCPCS: 36415; 71010; 80048; 80305; 83605; 83735; 83880; 84484; 85025; 87040; 93005; 94640; 94644; 96374; 96375; 99285; J1650; J1720; J2270; J2920; J2930; J3475; J7611; J7620; J7626

== ENCOUNTER 2017-02-28 20:25 | Inpatient (IN) | payer MEDICAID ==
[~2017-02-28] VITALS: Ht 177.8 cm; Wt 69.9 kg
[~2017-02-28 20:25] MED LIST changes: +P20 PO; -PROM5SYR PO
[2017-02-28 22:44] LABS: BASOPHILS % 0.6 % (0.0-2.0); EOSINOPHILS % 3.8 % (0.0-5.0); HEMATOCRIT. 31.3 % (36.0-48.0); HEMOGLOBIN. 10.1 g/dL (12.0-16.0); LYMPHOCYTES % 22.3 % (20.0-50.0); MEAN CORPUSCULAR HEMOGLOBIN 26.5 pg (28.0-32.0); MEAN CORPUSCULAR VOLUME 81.9 fL (81.0-99.0); MEAN PLATELET VOLUME 8.1 fl (7.4-10.4); MONOCYTES % 9.2 % (2.0-8.0); NEUTROPHILS % 64.1 % (40.0-76.0); PLATELET 210 x1000/uL (130-400); RED BLOOD CELL COUNT 3.82 mill/uL (4.2-5.4); RED CELL DISTRIBUTION WIDTH 16.2 % (11.6-14.6)
[2017-02-28 22:48] LABS: CHLORIDE 99 mEq/L (98-107)
[2017-02-28 22:51] LABS: INR 1.1; PROTHROMBIN TIME 11.1 sec (9.4-11.6)
[2017-02-28 22:55] LABS: CARBON DIOXIDE 36 mEq/L (21-32)
[2017-02-28 23:00] LABS: TROPONIN I < 0.02 ng/mL (0.00-0.04)
[2017-03-01] VITALS: BP 100/55
[2017-03-01] MEDS ORDERED: ONDANSETRON HCL 4MG/2ML VIAL IV ONE (03:00)
[2017-03-01] MEDS ORDERED: KETOROLAC 15MG/ML VIAL IV ONE (03:00)
[2017-03-01] MEDS ORDERED: IPRATROPIUM/ALBUTEROL 0.5-3(2.5)MG/3ML NEB HHN PRN ×2 (11:15→14:15)
[2017-03-01] MEDS ORDERED: IPRATROPIUM/ALBUTEROL 0.5-3(2.5)MG/3ML NEB HHN SCH (12:00)
[2017-03-01 12:24] VITALS: BP 121/50
[2017-03-01] MEDS ORDERED: CLONIDINE 0.1MG TABLET PO PRN (12:30)
[2017-03-01] MEDS: AMLODIPINE 10MG TABLET PO SCH (12:30)
[2017-03-01] MEDS ORDERED: DOCUSATE SODIUM 100MG CAPSULE PO PRN (12:30)
[2017-03-01] MEDS ORDERED: ONDANSETRON HCL 4MG/2ML VIAL IV PRN (12:30)
[2017-03-01] MEDS ORDERED: IPRATROPIUM/ALBUTEROL 0.5-3(2.5)MG/3ML NEB INH PRN (12:30)
[2017-03-01] MEDS: BUDESONIDE 0.5MG/2ML NEB HHN SCH (15:00)
[2017-03-01] MEDS: METHYLPREDNISOLONE SOD SUCC 125 MG/2 ML VIAL IV SCH ×2 (15:56→17:35)
[2017-03-01] MEDS: ENOXAPARIN 40MG/0.4ML SYR SUBCUT SCH (15:56)
[2017-03-01] MEDS: LEVOFLOXACIN 500MG PREMIX 100 ML IV SCH (15:57)
[2017-03-01 16:12] VITALS: BP 93/51
[2017-03-01] MEDS: HYDROCODONE/ACETAMINOPHEN 10/325MG TABLET PO PRN ×2 (16:15→22:27)
[2017-03-01] MEDS: THEOPHYLLINE ANHYDROUS 80 MG/15 ML 120ML PO SCH (16:16)
[2017-03-01] MEDS: GUAIFENESIN 200MG/10ML SUGAR FREE UDC PO PRN (16:16)
[2017-03-01] MEDS ORDERED: IPRATROPIUM/ALBUTEROL 0.5-3(2.5)MG/3ML NEB INH SCH (18:00)
[2017-03-01] MEDS: IPRATROPIUM/ALBUTEROL 0.5-3(2.5)MG/3ML NEB HHN SCH (21:36)
[2017-03-02] VITALS: BP 100/55
[2017-03-02] MEDS: METHYLPREDNISOLONE SOD SUCC 125 MG/2 ML VIAL IV SCH ×3 (00:43→12:52)
[2017-03-02] MEDS: IPRATROPIUM/ALBUTEROL 0.5-3(2.5)MG/3ML NEB HHN SCH ×6 (00:56→19:51)
[2017-03-02] MEDS: GUAIFENESIN 200MG/10ML SUGAR FREE UDC PO PRN ×2 (03:33→20:46)
[2017-03-02 08:00] VITALS: BP 87/51
[2017-03-02 08:19] LABS: HEMATOCRIT. 31.7 % (36.0-48.0); HEMOGLOBIN. 10.4 g/dL (12.0-16.0); MEAN CORPUSCULAR HEMOGLOBIN 26.9 pg (28.0-32.0); MEAN CORPUSCULAR VOLUME 82.2 fL (81.0-99.0); PLATELET 198 x1000/uL (130-400); RED BLOOD CELL COUNT 3.85 mill/uL (4.2-5.4); RED CELL DISTRIBUTION WIDTH 15.7 % (11.6-14.6)
[2017-03-02] MEDS: AMLODIPINE 10MG TABLET PO SCH (09:00)
[2017-03-02 09:03] LABS: CARBON DIOXIDE 37 mEq/L (21-32); CHLORIDE 97 mEq/L (98-107)
[2017-03-02] MEDS: ENOXAPARIN 40MG/0.4ML SYR SUBCUT SCH (09:12)
[2017-03-02] MEDS: THEOPHYLLINE ANHYDROUS 80 MG/15 ML 120ML PO SCH ×2 (09:14→16:30)
[2017-03-02] MEDS: BUDESONIDE 0.5MG/2ML NEB HHN SCH (11:09)
[2017-03-02 12:00] VITALS: BP 104/62
[2017-03-02] MEDS: LEVOFLOXACIN 500MG PREMIX 100 ML IV SCH (12:52)
[2017-03-02 16:00] VITALS: BP 90/54
[2017-03-02 16:43] LABS: PLATELET ESTIMATE NORMAL
[2017-03-02 20:00] VITALS: BP 94/55
[2017-03-02] MEDS: METHYLPREDNISOLONE SOD SUCC 40 MG/ML VIAL IV SCH (20:45)
[2017-03-02] MEDS: HYDROCODONE/ACETAMINOPHEN 5/325MG TABLET PO PRN (20:47)
[2017-03-03] VITALS: BP 123/54
[2017-03-03] MEDS: IPRATROPIUM/ALBUTEROL 0.5-3(2.5)MG/3ML NEB HHN SCH ×6 (00:11→19:54)
[2017-03-03] MEDS: GUAIFENESIN 200MG/10ML SUGAR FREE UDC PO PRN ×2 (01:15→21:08)
[2017-03-03 04:00] VITALS: BP 115/46
[2017-03-03] MEDS: HYDROCODONE/ACETAMINOPHEN 5/325MG TABLET PO PRN ×2 (05:46→21:09)
[2017-03-03 08:00] VITALS: BP 118/57
[2017-03-03] MEDS: AMLODIPINE 10MG TABLET PO SCH (08:55)
[2017-03-03] MEDS: THEOPHYLLINE ANHYDROUS 80 MG/15 ML 120ML PO SCH ×2 (08:55→17:07)
[2017-03-03] MEDS: ENOXAPARIN 40MG/0.4ML SYR SUBCUT SCH (08:56)
[2017-03-03] MEDS: METHYLPREDNISOLONE SOD SUCC 40 MG/ML VIAL IV SCH ×2 (08:56→21:08)
[2017-03-03] MEDS: BUDESONIDE 0.5MG/2ML NEB HHN SCH ×2 (09:41→19:54)
[2017-03-03] MEDS: LEVOFLOXACIN 500MG PREMIX 100 ML IV SCH (11:46)
[2017-03-03] MEDS: HYDROCODONE/ACETAMINOPHEN 10/325MG TABLET PO PRN (11:49)
[2017-03-03 12:00] VITALS: BP 108/56
[2017-03-03 16:00] VITALS: BP 104/56
[2017-03-03 18:00] VITALS: BP 108/57
[2017-03-04] VITALS: BP 111/41
[2017-03-04] MEDS: IPRATROPIUM/ALBUTEROL 0.5-3(2.5)MG/3ML NEB HHN SCH ×6 (01:10→20:00)
[2017-03-04 04:00] VITALS: BP 106/55
[2017-03-04 08:00] VITALS: BP 97/49
[2017-03-04] MEDS: AMLODIPINE 10MG TABLET PO SCH (08:10)
[2017-03-04] MEDS: METHYLPREDNISOLONE SOD SUCC 40 MG/ML VIAL IV SCH ×2 (08:29→21:21)
[2017-03-04] MEDS: ENOXAPARIN 40MG/0.4ML SYR SUBCUT SCH (08:29)
[2017-03-04] MEDS: THEOPHYLLINE ANHYDROUS 80 MG/15 ML 120ML PO SCH ×2 (08:30→18:28)
[2017-03-04] MEDS: HYDROCODONE/ACETAMINOPHEN 10/325MG TABLET PO PRN ×2 (08:30→21:22)
[2017-03-04 12:00] VITALS: BP 106/99
[2017-03-04] MEDS: LEVOFLOXACIN 500MG TABLET PO SCH (12:02)
[2017-03-04 20:00] VITALS: BP 122/49
[2017-03-04] MEDS: BUDESONIDE 0.5MG/2ML NEB HHN SCH (20:30)
[2017-03-05] VITALS: BP 119/56
[2017-03-05] MEDS: IPRATROPIUM/ALBUTEROL 0.5-3(2.5)MG/3ML NEB HHN SCH ×4 (00:19→12:40)
[2017-03-05 04:00] VITALS: BP 138/62
[2017-03-05 08:00] VITALS: BP 105/49
[2017-03-05] MEDS: AMLODIPINE 10MG TABLET PO SCH (09:00)
[2017-03-05] MEDS: THEOPHYLLINE ANHYDROUS 80 MG/15 ML 120ML PO SCH (09:28)
[2017-03-05] MEDS: METHYLPREDNISOLONE SOD SUCC 40 MG/ML VIAL IV SCH (09:28)
[2017-03-05] MEDS: ENOXAPARIN 40MG/0.4ML SYR SUBCUT SCH (09:30)
[2017-03-05] MEDS: HYDROCODONE/ACETAMINOPHEN 10/325MG TABLET PO PRN (09:40)
[2017-03-05] MEDS: LEVOFLOXACIN 500MG TABLET PO SCH (11:00)
[2017-03-05 12:00] VITALS: BP 110/64
[2017-03-05 14:59] VITALS: BP 96/50
[2017-03-05 15:30] VITALS: BP 96/50
[2017-04-02] MEDS ORDERED: LORA1TAB PO (01:44)
[2017-04-02] MEDS ORDERED: METH4TAB17 PO (01:48)
[2017-04-02] MEDS ORDERED: solumedrol (01:50)
[2017-04-08] MEDS ORDERED: P20 PO (13:39)
[2017-04-08] MEDS ORDERED: TRAM50TA73 PO (13:39)
== END 2017-03-05 16:44 | disposition home or self-care (01) | DRG 140 ==
LOC: ER 21:45 → 5WST 03-01 02:30 → ENRESERV 03-01 10:12
PROVIDERS: ADMIT Hospitalist; ATTEND Hospitalist
DX: J44.1 Chronic obstructive pulmonary disease with (acute) exacerbation (principal); J96.20 Acute and chronic respiratory failure, unspecified whether with hypoxia or hypercapnia; J84.9 Interstitial pulmonary disease, unspecified; Z99.81 Dependence on supplemental oxygen; R65.10 Systemic inflammatory response syndrome (SIRS) of non-infectious origin without acute organ dysfunction; E44.0 Moderate protein-calorie malnutrition; J45.901 Unspecified asthma with (acute) exacerbation; F20.9 Schizophrenia, unspecified; F41.9 Anxiety disorder, unspecified; F42.9 Obsessive-compulsive disorder, unspecified; Z79.899 Other long term (current) drug therapy; Z90.49 Acquired absence of other specified parts of digestive tract; Z91.19 Patient's noncompliance with other medical treatment and regimen
CPT/HCPCS: 36415; 71010; 80053; 83036; 83735; 83880; 84484; 85025; 85610; 85651; 93005; 93970; 94640; 94664; 96374; 96375; 99285; J1650; J1885; J1956; J2405; J2920; J2930; J7050; J7620; J7626

== ENCOUNTER 2017-03-15 20:55 | Inpatient (IN) | payer MEDICAID ==
[~2017-03-15] VITALS: Ht 177.8 cm; Wt 73.5 kg
[2017-03-15 21:49] LABS: BASOPHILS % 0.6 % (0.0-2.0); EOSINOPHILS % 2.7 % (0.0-5.0); HEMATOCRIT. 33.7 % (36.0-48.0); HEMOGLOBIN. 10.9 g/dL (12.0-16.0); LYMPHOCYTES % 15.9 % (20.0-50.0); MEAN CORPUSCULAR HEMOGLOBIN 26.8 pg (28.0-32.0); MEAN CORPUSCULAR VOLUME 82.6 fL (81.0-99.0); MEAN PLATELET VOLUME 8.3 fl (7.4-10.4); MONOCYTES % 7.9 % (2.0-8.0); NEUTROPHILS % 72.9 % (40.0-76.0); PLATELET 194 x1000/uL (130-400); RED BLOOD CELL COUNT 4.08 mill/uL (4.2-5.4); RED CELL DISTRIBUTION WIDTH 16.5 % (11.6-14.6)
[2017-03-15 21:55] LABS: PROTHROMBIN TIME 10.8 sec (9.4-11.6)
[2017-03-15 22:01] LABS: CARBON DIOXIDE 33 mEq/L (21-32); CHLORIDE 100 mEq/L (98-107)
[2017-03-15 22:04] LABS: TROPONIN I < 0.02 ng/mL (0.00-0.04)
[2017-03-16] VITALS (7 sets, daily range): BP systolic 92–160; BP diastolic 49–61
[2017-03-16] MEDS ORDERED: METHYLPREDNISOLONE SOD SUCC 125 MG/2 ML VIAL IV STA (00:22)
[2017-03-16] MEDS ORDERED: IPRATROPIUM BROMIDE (0.02%) 0.5MG/2.5ML NEB HHN STA (00:22)
[2017-03-16] MEDS ORDERED: ALBUTEROL (0.083%) 2.5MG/3ML NEB HHN SCH (00:30)
[2017-03-16 01:15] LABS: BASOPHILS % 0.7 % (0.0-2.0); EOSINOPHILS % 2.7 % (0.0-5.0); HEMATOCRIT. 33.4 % (36.0-48.0); LYMPHOCYTES % 21.9 % (20.0-50.0); MEAN CORPUSCULAR HEMOGLOBIN 27.1 pg (28.0-32.0); MEAN CORPUSCULAR VOLUME 82.5 fL (81.0-99.0); MEAN PLATELET VOLUME 8.3 fl (7.4-10.4); MONOCYTES % 8.4 % (2.0-8.0); NEUTROPHILS % 66.3 % (40.0-76.0); PLATELET 195 x1000/uL (130-400); RED BLOOD CELL COUNT 4.05 mill/uL (4.2-5.4); RED CELL DISTRIBUTION WIDTH 16.3 % (11.6-14.6)
[2017-03-16 01:24] LABS: INR 1.1; PROTHROMBIN TIME 11.1 sec (9.4-11.6)
[2017-03-16 01:43] LABS: CARBON DIOXIDE 35 mEq/L (21-32); CHLORIDE 100 mEq/L (98-107); TROPONIN I < 0.02 ng/mL (0.00-0.04)
[2017-03-16] MEDS ORDERED: HYDROCODONE/ACETAMINOPHEN 5/325MG TABLET PO ONE (01:45)
[2017-03-16] MEDS ORDERED: IPRATROPIUM/ALBUTEROL 0.5-3(2.5)MG/3ML NEB HHN PRN (06:15)
[2017-03-16] MEDS ORDERED: HYDROCODONE/ACETAMINOPHEN 5/325MG TABLET PO PRN (06:15)
[2017-03-16] MEDS ORDERED: ACETAMINOPHEN 325MG TABLET PO PRN (06:15)
[2017-03-16] MEDS ORDERED: METHYLPREDNISOLONE SOD SUCC 40 MG/ML VIAL IV SCH (07:00)
[2017-03-16] MEDS: METHYLPREDNISOLONE SOD SUCC 40 MG/ML VIAL IV SCH ×3 (09:37→20:25)
[2017-03-16] MEDS: ENOXAPARIN 40MG/0.4ML SYR SUBCUT SCH (09:38)
[2017-03-16 10:17] LABS: HEMOGLOBIN. 10.6 g/dL (12.0-16.0); MEAN CORPUSCULAR HEMOGLOBIN 26.6 pg (28.0-32.0); MEAN CORPUSCULAR VOLUME 82.7 fL (81.0-99.0); PLATELET 189 x1000/uL (130-400); RED BLOOD CELL COUNT 3.99 mill/uL (4.2-5.4); RED CELL DISTRIBUTION WIDTH 15.4 % (11.6-14.6)
[2017-03-16 10:26] LABS: CARBON DIOXIDE 34 mEq/L (21-32); CHLORIDE 101 mEq/L (98-107); CREATINE KINASE 17 IU/L (26-192); CREATINE KINASE MB FRACTION 0.6 ng/mL (0.5-3.6); TROPONIN I < 0.02 ng/mL (0.00-0.04)
[2017-03-16] MEDS: IPRATROPIUM/ALBUTEROL 0.5-3(2.5)MG/3ML NEB HHN SCH ×2 (12:23→21:03)
[2017-03-16 12:41] LABS: PLATELET ESTIMATE NORMAL
[2017-03-16] MEDS: DIAZEPAM 5 MG TABLET PO SCH ×2 (14:42→20:25)
[2017-03-16] MEDS: MORPHINE SULFATE 10 MG/ML CPJ IV PRN ×2 (14:50→19:39)
[2017-03-16 17:24] LABS: CREATINE KINASE 18 IU/L (26-192); CREATINE KINASE MB FRACTION < 0.5 ng/mL (0.5-3.6); TROPONIN I < 0.02 ng/mL (0.00-0.04)
[2017-03-17] MEDS: IPRATROPIUM/ALBUTEROL 0.5-3(2.5)MG/3ML NEB HHN SCH ×4 (03:11→20:35)
[2017-03-17] MEDS: DIAZEPAM 5 MG TABLET PO SCH ×3 (03:56→20:00)
[2017-03-17 04:00] VITALS: BP 110/56
[2017-03-17] MEDS: MORPHINE SULFATE 10 MG/ML CPJ IV PRN ×4 (04:03→21:42)
[2017-03-17] MEDS: METHYLPREDNISOLONE SOD SUCC 40 MG/ML VIAL IV SCH ×3 (05:33→21:41)
[2017-03-17 06:40] LABS: CARBON DIOXIDE 36 mEq/L (21-32); CHLORIDE 98 mEq/L (98-107)
[2017-03-17 06:46] LABS: HEMATOCRIT. 31.5 % (36.0-48.0); MEAN CORPUSCULAR HEMOGLOBIN 26.2 pg (28.0-32.0); MEAN CORPUSCULAR VOLUME 82.5 fL (81.0-99.0); MEAN PLATELET VOLUME 9.1 fl (7.4-10.4); PLATELET 187 x1000/uL (130-400); RED BLOOD CELL COUNT 3.83 mill/uL (4.2-5.4); RED CELL DISTRIBUTION WIDTH 15.9 % (11.6-14.6)
[2017-03-17 08:00] VITALS: BP 94/41
[2017-03-17] MEDS: ENOXAPARIN 40MG/0.4ML SYR SUBCUT SCH (08:28)
[2017-03-17 12:00] VITALS: BP 85/51
[2017-03-17 13:20] VITALS: BP 105/58
[2017-03-17 16:00] VITALS: BP 91/50
[2017-03-17 20:00] VITALS: BP 106/55
[2017-03-17 21:55] LABS: PLATELET ESTIMATE NORMAL
[2017-03-18] VITALS: BP 120/56
[2017-03-18] MEDS: IPRATROPIUM/ALBUTEROL 0.5-3(2.5)MG/3ML NEB HHN SCH ×3 (01:00→14:49)
[2017-03-18 04:00] VITALS: BP 124/68
[2017-03-18] MEDS: DIAZEPAM 5 MG TABLET PO SCH ×2 (04:00→12:00)
[2017-03-18] MEDS: MORPHINE SULFATE 10 MG/ML CPJ IV PRN ×2 (04:49→10:28)
[2017-03-18] MEDS: METHYLPREDNISOLONE SOD SUCC 40 MG/ML VIAL IV SCH (05:18)
[2017-03-18 06:02] LABS: HEMATOCRIT. 31.7 % (36.0-48.0); MEAN CORPUSCULAR HEMOGLOBIN 26.3 pg (28.0-32.0); MEAN CORPUSCULAR VOLUME 83.7 fL (81.0-99.0); MEAN PLATELET VOLUME 9.4 fl (7.4-10.4); PLATELET 198 x1000/uL (130-400); RED BLOOD CELL COUNT 3.79 mill/uL (4.2-5.4); RED CELL DISTRIBUTION WIDTH 15.9 % (11.6-14.6)
[2017-03-18 07:02] LABS: CARBON DIOXIDE 37 mEq/L (21-32); CHLORIDE 99 mEq/L (98-107)
[2017-03-18 08:00] VITALS: BP 120/52
[2017-03-18] MEDS: ENOXAPARIN 40MG/0.4ML SYR SUBCUT SCH (08:32)
[2017-03-18 12:00] VITALS: BP 106/63
[2017-03-18] MEDS ORDERED: IBUP-2030 PO (12:07)
[2017-03-18 12:48] VITALS: BP 106/63
[2017-03-18 14:17] LABS: PLATELET ESTIMATE NORMAL
[2017-04-02] MEDS ORDERED: LORA1TAB PO (01:44)
[2017-04-02] MEDS ORDERED: METH4TAB17 PO (01:48)
[2017-04-02] MEDS ORDERED: solumedrol (01:50)
[2017-04-05 07:48] LABS: BARBITURATE SCREEN Negative ug/mL (Cutoff:0.1); BENZODIAZEPINE SCREEN Negative ng/mL (Cutoff:20); OPIATES SCREEN ++POSITIVE++ ng/mL (Cutoff:5); PHENCYCLIDINE SCREEN Negative ng/mL (Cutoff:8)
== END 2017-03-18 16:25 | disposition home or self-care (01) | DRG 351 ==
LOC: ER 21:09 → 7WST 03-16 02:08 → ENRESERV 03-16 03:48
PROVIDERS: ADMIT Internal Medicine; ATTEND Internal Medicine
DX: M75.91 Shoulder lesion, unspecified, right shoulder (principal); J96.10 Chronic respiratory failure, unspecified whether with hypoxia or hypercapnia; R65.10 Systemic inflammatory response syndrome (SIRS) of non-infectious origin without acute organ dysfunction; Z99.81 Dependence on supplemental oxygen; E44.1 Mild protein-calorie malnutrition; J44.9 Chronic obstructive pulmonary disease, unspecified; D64.9 Anemia, unspecified; F41.9 Anxiety disorder, unspecified; Z82.49 Family history of ischemic heart disease and other diseases of the circulatory system; Z87.891 Personal history of nicotine dependence; Z79.899 Other long term (current) drug therapy
CPT/HCPCS: 36415; 71010; 73030; 80048; 80053; 80307; 82550; 82553; 83880; 84484; 85025; 85610; 93005; 94640; 94664; 96374; 99285; J1650; J2270; J2920; J2930; J7611; J7620

== ENCOUNTER 2017-04-05 16:32 | Inpatient (IN) | payer MEDICAID ==
[~2017-04-05] VITALS: Ht 162.6 cm; Wt 68.5 kg
[~2017-04-05 16:32] MED LIST changes: -HYDR-519 PO; +IBUP-2030 PO; +METH4TAB17 PO
[2017-04-05] MEDS ORDERED: IPRATROPIUM/ALBUTEROL 0.5-3(2.5)MG/3ML NEB HHN ONE (18:15)
[2017-04-05 19:13] LABS: BASOPHILS % 0.7 % (0.0-2.0); EOSINOPHILS % 2.3 % (0.0-5.0); HEMATOCRIT. 35.4 % (36.0-48.0); HEMOGLOBIN. 11.4 g/dL (12.0-16.0); LYMPHOCYTES % 17.6 % (20.0-50.0); MEAN CORPUSCULAR HEMOGLOBIN 26.5 pg (28.0-32.0); MEAN CORPUSCULAR VOLUME 82.5 fL (81.0-99.0); MEAN PLATELET VOLUME 8.8 fl (7.4-10.4); MONOCYTES % 8.6 % (2.0-8.0); NEUTROPHILS % 70.8 % (40.0-76.0); PLATELET 205 x1000/uL (130-400); RED BLOOD CELL COUNT 4.29 mill/uL (4.2-5.4); RED CELL DISTRIBUTION WIDTH 16.4 % (11.6-14.6)
[2017-04-05 19:20] LABS: CHLORIDE 95 mEq/L (98-107)
[2017-04-05 19:21] LABS: INR 1.1
[2017-04-05 19:27] LABS: AMMONIA < 25 uMol/L (<32)
[2017-04-05 19:28] LABS: CARBON DIOXIDE 37 mEq/L (21-32)
[2017-04-05 19:31] LABS: TROPONIN I < 0.02 ng/mL (0.00-0.04)
[2017-04-05 20:21] LABS: HEPATITIS B CORE AB IGM NEGATIVE
[2017-04-05 20:23] LABS: HEPATITIS A AB IGM NEGATIVE (NEGATIVE)
[2017-04-05 21:05] LABS: HEPATITIS B SURFACE ANTIGEN REACTIVE PEND CONFIR
[2017-04-06] VITALS (7 sets, daily range): BP systolic 88–107; BP diastolic 50–76
[2017-04-06] MEDS ORDERED: ONDANSETRON HCL 4MG/2ML VIAL IV PRN (06:30)
[2017-04-06] MEDS ORDERED: DOCUSATE SODIUM 100MG CAPSULE PO PRN (06:30)
[2017-04-06] MEDS ORDERED: CLONIDINE 0.1MG TABLET PO PRN (06:30)
[2017-04-06] MEDS ORDERED: ACETAMINOPHEN 325MG TABLET PO PRN (06:30)
[2017-04-06] MEDS ORDERED: GUAIFENESIN 200MG/10ML SUGAR FREE UDC PO PRN (06:30)
[2017-04-06] MEDS ORDERED: DIPHENHYDRAMINE 50MG/ML VIAL IV PRN (06:30)
[2017-04-06] MEDS ORDERED: MAGNESIUM/ALUMINUM HYDROXIDE/SIMETHICONE 30ML UDC PO PRN (06:30)
[2017-04-06] MEDS: IPRATROPIUM/ALBUTEROL 0.5-3(2.5)MG/3ML NEB INH SCH ×5 (09:08→23:27)
[2017-04-06] MEDS: ASPIRIN 81MG EC TABLET PO SCH (09:31)
[2017-04-06] MEDS: HYDROCODONE/APAP 7.5/325MG 1 TAB TABLET PO PRN ×2 (09:32→19:01)
[2017-04-06 17:35] LABS: CLARITY URINE CLOUDY (CLEAR); COLOR URINE RED (YELLOW); GLUCOSE URINE NEGATIVE (NEGATIVE); KETONES URINE NEGATIVE (NEGATIVE); LEUKOCYTE ESTERASE URINE 1+ (NEGATIVE); NITRITE URINE NEGATIVE (NEGATIVE); OCCULT BLOOD URINE 3+ (NEGATIVE); PH URINE 5.5 (4.5-8.0); PROTEIN URINE 1+ (NEGATIVE)
[2017-04-06 17:51] LABS: *AMPHETAMINES SCREEN URINE NEGATIVE (NEGATIVE); *BARBITURATES SCREEN URINE NEGATIVE (NEGATIVE); *BENZODIAZEPINES SCREEN URINE NEGATIVE (NEGATIVE); *COCAINE SCREEN URINE NEGATIVE (NEGATIVE); CANNABINOID URINE SCREEN NEGATIVE (NEGATIVE); METHADONE URINE SCREEN NEGATIVE (NEGATIVE); OPIATES URINE SCREEN PRESUMTIVE POSITIVE (NEGATIVE); PHENCYCLIDINE URINE SCREEN NEGATIVE (NEGATIVE)
[2017-04-06] MEDS ORDERED: LORAZEPAM 1MG TABLET PO PRN (20:45)
[2017-04-06] MEDS: THEOPHYLLINE ANHYDROUS 80 MG/15 ML 120ML PO SCH (21:58)
[2017-04-07] MEDS ORDERED: BUDESONIDE 0.5MG/2ML NEB HHN SCH
[2017-04-07] MEDS: IPRATROPIUM/ALBUTEROL 0.5-3(2.5)MG/3ML NEB INH SCH ×6 (03:01→20:28)
[2017-04-07 03:47] VITALS: BP 92/54
[2017-04-07 06:36] LABS: BASOPHILS % 0.6 % (0.0-2.0); EOSINOPHILS % 4.2 % (0.0-5.0); HEMATOCRIT. 30.7 % (36.0-48.0); LYMPHOCYTES % 26.5 % (20.0-50.0); MEAN CORPUSCULAR HEMOGLOBIN 26.8 pg (28.0-32.0); MEAN CORPUSCULAR VOLUME 82.1 fL (81.0-99.0); MEAN PLATELET VOLUME 9.1 fl (7.4-10.4); MONOCYTES % 10.1 % (2.0-8.0); NEUTROPHILS % 58.6 % (40.0-76.0); PLATELET 198 x1000/uL (130-400); RED BLOOD CELL COUNT 3.74 mill/uL (4.2-5.4); RED CELL DISTRIBUTION WIDTH 16.2 % (11.6-14.6)
[2017-04-07] MEDS ORDERED: LIDOCAINE HCL/PF 1% 2ML VIAL ONE (07:00)
[2017-04-07 07:36] LABS: CARBON DIOXIDE 37 mEq/L (21-32); CHLORIDE 98 mEq/L (98-107)
[2017-04-07 07:46] LABS: HDL CHOLESTEROL 85 mg/dL (40-59); LDL CHOLESTEROL 54 mg/dL (5-100); T4 FREE 1.05 ng/dL (0.76-1.46)
[2017-04-07 08:00] VITALS: BP 98/40
[2017-04-07] MEDS: THEOPHYLLINE ANHYDROUS 80 MG/15 ML 120ML PO SCH ×2 (08:26→16:22)
[2017-04-07] MEDS: ASPIRIN 81MG EC TABLET PO SCH (08:27)
[2017-04-07] MEDS: HYDROCODONE/APAP 7.5/325MG 1 TAB TABLET PO PRN ×2 (08:27→16:31)
[2017-04-07 11:43] LABS: BG BASE EXCESS 3.3 mmol/L (-2.0-2.0); BG CARBOXYHEMOGLOBIN 0.6 % (0.5-1.5); BG DEOXYHEMOGLOBIN 10.4 % (0.0-5.0); BG FRACTION INSPIRED OXYGEN 21; BG HCO3 ACT 28.9 mmol/L (22.0-26.0); BG METHEMOGLOBIN 0.1 % (0.0-1.5); BG OXYGEN SATURATION 89.5 % (92.0-98.5); BG OXYHEMOGLOBIN 88.9 % (94.0-97.0); BG PCO2 48.8 mmHg (35.0-45.0); BG PO2 54.4 mmHg (75.0-100.0); BG SAMPLE SITE RIGHT BRACHIAL; BG TOTAL HEMOGLOBIN 10.9 g/dL (12.0-18.0); BG VENT MODE ROOM AIR
[2017-04-07 12:00] VITALS: BP 90/57
[2017-04-07 16:00] VITALS: BP 88/58
[2017-04-07 20:00] VITALS: BP 96/56
[2017-04-08] VITALS (7 sets, daily range): BP systolic 90–131; BP diastolic 50–69
[2017-04-08] MEDS: IPRATROPIUM/ALBUTEROL 0.5-3(2.5)MG/3ML NEB INH SCH ×3 (00:14→07:49)
[2017-04-08] MEDS: HYDROCODONE/APAP 7.5/325MG 1 TAB TABLET PO PRN ×2 (05:27→13:03)
[2017-04-08] MEDS: THEOPHYLLINE ANHYDROUS 80 MG/15 ML 120ML PO SCH (08:51)
[2017-04-08] MEDS: ASPIRIN 81MG EC TABLET PO SCH (08:52)
[2017-04-08] MEDS ORDERED: TRAM50TA73 PO (13:39)
[2017-04-08] MEDS ORDERED: P20 PO (13:39)
[2017-04-11 09:06] LABS: HBSAG SCREEN Confirm. indicated (Negative)
[2017-04-11 14:23] LABS: HBSAG CONFIRMATION Positive (.)
== END 2017-04-08 16:10 | disposition home or self-care (01) | DRG 133 ==
LOC: ER 17:05 → 5WST 23:29 → EDBEDREQ 23:37 → ENRESERV 04-06 02:00
PROVIDERS: ADMIT Internal Medicine; ATTEND Internal Medicine
DX: J96.01 Acute respiratory failure with hypoxia (principal); Z99.81 Dependence on supplemental oxygen; J44.1 Chronic obstructive pulmonary disease with (acute) exacerbation; B19.10 Unspecified viral hepatitis B without hepatic coma; E44.1 Mild protein-calorie malnutrition; J96.02 Acute respiratory failure with hypercapnia; R62.7 Adult failure to thrive; M54.5 Low back pain; F41.9 Anxiety disorder, unspecified; G89.29 Other chronic pain; K59.00 Constipation, unspecified; Z87.440 Personal history of urinary (tract) infections; Z91.14 Patient's other noncompliance with medication regimen; Z98.51 Tubal ligation status; Z79.899 Other long term (current) drug therapy
CPT/HCPCS: 36415; 36600; 71010; 80053; 80061; 80305; 81001; 82140; 82375; 82805; 83036; 83605; 83880; 84439; 84443; 84484; 85025; 85610; 86705; 86709; 86803; 87340; 93005; 93970; 94640; 99285; J3490; J7620

== ENCOUNTER 2017-05-16 20:29 | Inpatient (IN) | payer MEDICAID ==
[~2017-05-16] VITALS: Ht 175.3 cm; Wt 69.9 kg
[~2017-05-16 20:29] MED LIST changes: -METH4TAB17 PO; +TRAM50TA94 PO
[2017-05-16] MEDS ORDERED: ALBUTEROL (0.083%) 2.5MG/3ML NEB HHN SCH (23:40)
[2017-05-16] MEDS ORDERED: MORPHINE SULFATE 4 MG/ML CPJ (NOT FOR IM USE) IV SCH (23:40)
[2017-05-16] MEDS ORDERED: IPRATROPIUM BROMIDE (0.02%) 0.5MG/2.5ML NEB HHN SCH (23:40)
[2017-05-16] MEDS ORDERED: ONDANSETRON HCL 4MG/2ML VIAL IV SCH (23:40)
[2017-05-16] MEDS ORDERED: ALBUTEROL (0.5%) 2.5MG/0.5ML NEB HHN ONE (23:54)
[2017-05-17 00:11] LABS: HEMATOCRIT. 31.5 % (36.0-48.0); HEMOGLOBIN. 9.9 g/dL (12.0-16.0); MEAN CORPUSCULAR HEMOGLOBIN 25.9 pg (28.0-32.0); MEAN CORPUSCULAR VOLUME 82.1 fL (81.0-99.0); MEAN PLATELET VOLUME 8.6 fl (7.4-10.4); PLATELET 146 x1000/uL (130-400); RED BLOOD CELL COUNT 3.83 mill/uL (4.2-5.4); RED CELL DISTRIBUTION WIDTH 17.2 % (11.6-14.6)
[2017-05-17 00:28] LABS: CARBON DIOXIDE 38 mEq/L (21-32); CHLORIDE 95 mEq/L (98-107); TROPONIN I < 0.02 ng/mL (0.00-0.04)
[2017-05-17 01:24] LABS: ATYPICAL LYMPHOCYTES 5; PLATELET ESTIMATE NORMAL
[2017-05-17 10:00] VITALS: BP 100/59
[2017-05-17 10:18] VITALS: BP 100/59
[2017-05-17] MEDS ORDERED: IPRATROPIUM/ALBUTEROL 0.5-3(2.5)MG/3ML NEB HHN PRN (10:30)
[2017-05-17] MEDS: ACETAMINOPHEN 325MG TABLET PO PRN ×2 (11:48→20:17)
[2017-05-17] MEDS: IPRATROPIUM/ALBUTEROL 0.5-3(2.5)MG/3ML NEB HHN SCH ×4 (11:57→23:50)
[2017-05-17 12:00] VITALS: BP 115/67
[2017-05-17] MEDS: BUDESONIDE 0.5MG/2ML NEB HHN SCH ×2 (12:00→23:50)
[2017-05-17] MEDS ORDERED: LEVOFLOXACIN 500MG PREMIX 100 ML IV SCH (12:00)
[2017-05-17] MEDS: LEVOFLOXACIN 500MG PREMIX 100 ML IV SCH (12:54)
[2017-05-17] MEDS: THEOPHYLLINE ANHYDROUS 80 MG/15 ML 120ML PO SCH ×2 (13:39→21:28)
[2017-05-17] MEDS: METHYLPREDNISOLONE SOD SUCC 40 MG/ML VIAL IV SCH ×2 (15:20→21:28)
[2017-05-17 16:00] VITALS: BP 86/57
[2017-05-17 20:00] VITALS: BP 91/56
[2017-05-18] VITALS: BP 98/68
[2017-05-18] MEDS: IPRATROPIUM/ALBUTEROL 0.5-3(2.5)MG/3ML NEB HHN SCH ×4 (03:41→20:13)
[2017-05-18] MEDS: ACETAMINOPHEN 325MG TABLET PO PRN ×3 (03:42→22:19)
[2017-05-18] MEDS: BUDESONIDE 0.5MG/2ML NEB HHN SCH (03:55)
[2017-05-18 04:00] VITALS: BP 100/68
[2017-05-18] MEDS: THEOPHYLLINE ANHYDROUS 80 MG/15 ML 120ML PO SCH ×4 (06:31→21:58)
[2017-05-18] MEDS: METHYLPREDNISOLONE SOD SUCC 40 MG/ML VIAL IV SCH ×2 (06:32→13:18)
[2017-05-18 08:00] VITALS: BP 105/67
[2017-05-18] MEDS: LEVOFLOXACIN 500MG PREMIX 100 ML IV SCH (11:38)
[2017-05-18 12:00] VITALS: BP 100/60
[2017-05-18 16:00] VITALS: BP 107/52
[2017-05-18 20:00] VITALS: BP 98/57
[2017-05-19] VITALS: BP 99/57
[2017-05-19 04:00] VITALS: BP 96/57
[2017-05-19] MEDS: IPRATROPIUM/ALBUTEROL 0.5-3(2.5)MG/3ML NEB HHN SCH ×4 (04:07→20:53)
[2017-05-19] MEDS: ACETAMINOPHEN 325MG TABLET PO PRN ×2 (05:28→19:38)
[2017-05-19] MEDS: THEOPHYLLINE ANHYDROUS 80 MG/15 ML 120ML PO SCH ×3 (05:29→22:02)
[2017-05-19] MEDS ORDERED: LIDOCAINE HCL/PF 1% 2ML VIAL ONE (06:47)
[2017-05-19 07:28] LABS: BG BASE EXCESS 17.7 mmol/L (-2.0-2.0); BG CARBOXYHEMOGLOBIN 0.5 % (0.5-1.5); BG DEOXYHEMOGLOBIN 2.2 % (0.0-5.0); BG FRACTION INSPIRED OXYGEN 28; BG HCO3 ACT 47.3 mmol/L (22.0-26.0); BG METHEMOGLOBIN 0.4 % (0.0-1.5); BG OXYGEN SATURATION 97.8 % (92.0-98.5); BG OXYHEMOGLOBIN 96.9 % (94.0-97.0); BG PCO2 90.9 mmHg (35.0-45.0); BG PH 7.334 (7.350-7.450); BG PO2 110.6 mmHg (75.0-100.0); BG SAMPLE SITE RIGHT RADIAL; BG TOTAL HEMOGLOBIN 10.9 g/dL (12.0-18.0); BG VENT MODE NASAL CANNULA
[2017-05-19 08:00] VITALS: BP 96/53
[2017-05-19] MEDS: PREDNISONE 20MG TABLET PO SCH ×2 (08:57→09:00)
[2017-05-19] MEDS: LEVOFLOXACIN 500MG PREMIX 100 ML IV SCH (11:40)
[2017-05-19 12:00] VITALS: BP 104/59
[2017-05-19] MEDS: METHYLPREDNISOLONE SOD SUCC 40 MG/ML VIAL IV SCH (14:20)
[2017-05-19] MEDS ORDERED: METHYLPREDNISOLONE SOD SUCC 40 MG/ML VIAL IV SCH (14:30)
[2017-05-19 16:00] VITALS: BP 100/65
[2017-05-19 20:00] VITALS: BP 104/55
[2017-05-19] MEDS: BUDESONIDE 0.5MG/2ML NEB HHN SCH (21:36)
[2017-05-20] VITALS: BP 136/68
[2017-05-20] MEDS: IPRATROPIUM/ALBUTEROL 0.5-3(2.5)MG/3ML NEB HHN SCH ×7 (00:35→23:53)
[2017-05-20] MEDS: METHYLPREDNISOLONE SOD SUCC 40 MG/ML VIAL IV SCH ×2 (03:09→14:30)
[2017-05-20 04:00] VITALS: BP 142/62
[2017-05-20] MEDS: THEOPHYLLINE ANHYDROUS 80 MG/15 ML 120ML PO SCH ×3 (06:34→21:50)
[2017-05-20] MEDS: ACETAMINOPHEN 325MG TABLET PO PRN ×2 (07:17→14:47)
[2017-05-20 08:00] VITALS: BP 96/58
[2017-05-20 12:00] VITALS: BP 112/50
[2017-05-20] MEDS: LEVOFLOXACIN 500MG PREMIX 100 ML IV SCH (14:35)
[2017-05-20 20:00] VITALS: BP 98/54
[2017-05-20] MEDS: BUDESONIDE 0.5MG/2ML NEB HHN SCH (20:19)
[2017-05-21] VITALS: BP 96/65
[2017-05-21] MEDS: METHYLPREDNISOLONE SOD SUCC 40 MG/ML VIAL IV SCH ×2 (01:48→01:51)
[2017-05-21 04:00] VITALS: BP 90/61
[2017-05-21] MEDS: IPRATROPIUM/ALBUTEROL 0.5-3(2.5)MG/3ML NEB HHN SCH ×5 (04:09→20:00)
[2017-05-21] MEDS: THEOPHYLLINE ANHYDROUS 80 MG/15 ML 120ML PO SCH ×3 (05:52→22:17)
[2017-05-21] MEDS: ACETAMINOPHEN 325MG TABLET PO PRN (05:54)
[2017-05-21] MEDS ORDERED: THEO80SO4 PO (07:41)
[2017-05-21] MEDS ORDERED: P20 PO (07:41)
[2017-05-21] MEDS ORDERED: ATROV INH (07:41)
[2017-05-21 08:00] VITALS: BP 90/60
[2017-05-21 09:09] LABS: CHLORIDE 90 mEq/L (98-107)
[2017-05-21 10:33] LABS: CARBON DIOXIDE 44 mEq/L (21-32)
[2017-05-21 11:18] LABS: BG BASE EXCESS 18.9 mmol/L (-2.0-2.0); BG CARBOXYHEMOGLOBIN 0.3 % (0.5-1.5); BG DEOXYHEMOGLOBIN 9.8 % (0.0-5.0); BG FRACTION INSPIRED OXYGEN 28; BG HCO3 ACT 47.4 mmol/L (22.0-26.0); BG METHEMOGLOBIN 0.3 % (0.0-1.5); BG OXYGEN SATURATION 90.1 % (92.0-98.5); BG OXYHEMOGLOBIN 89.6 % (94.0-97.0); BG PCO2 82.3 mmHg (35.0-45.0); BG PH 7.378 (7.350-7.450); BG PO2 59.4 mmHg (75.0-100.0); BG SAMPLE SITE RIGHT RADIAL; BG TOTAL HEMOGLOBIN 10.2 g/dL (12.0-18.0); BG VENT MODE NASAL CANNULA
[2017-05-21 12:00] VITALS: BP 96/61
[2017-05-21] MEDS: LEVOFLOXACIN 500MG TABLET PO SCH (12:07)
[2017-05-21] MEDS: MEGESTROL ACETATE 400 MG/10 ML UDC PO SCH (12:08)
[2017-05-21 16:00] VITALS: BP 94/62
[2017-05-21 20:00] VITALS: BP 109/63
[2017-05-22] VITALS (8 sets, daily range): BP systolic 91–111; BP diastolic 56–65
[2017-05-22] MEDS: ACETAMINOPHEN 325MG TABLET PO PRN ×2 (00:21→21:05)
[2017-05-22] MEDS: IPRATROPIUM/ALBUTEROL 0.5-3(2.5)MG/3ML NEB HHN SCH ×6 (01:27→23:29)
[2017-05-22] MEDS: ACETYLCYSTEINE 100MG/ML 10% VIAL 4ML INH SCH ×2 (01:27→07:35)
[2017-05-22] MEDS: THEOPHYLLINE ANHYDROUS 80 MG/15 ML 120ML PO SCH ×3 (05:52→21:04)
[2017-05-22] MEDS: MEGESTROL ACETATE 400 MG/10 ML UDC PO SCH ×3 (08:45→12:06)
[2017-05-22] MEDS: LEVOFLOXACIN 500MG TABLET PO SCH (11:43)
[2017-05-22] MEDS: ACETYLCYSTEINE 200MG/ML 20% VIAL 4ML INH SCH (15:55)
[2017-05-23] VITALS: BP 110/60
[2017-05-23 04:00] VITALS: BP 105/61
[2017-05-23] MEDS: IPRATROPIUM/ALBUTEROL 0.5-3(2.5)MG/3ML NEB HHN SCH ×3 (04:55→12:49)
[2017-05-23] MEDS: THEOPHYLLINE ANHYDROUS 80 MG/15 ML 120ML PO SCH (05:30)
[2017-05-23] MEDS: ACETYLCYSTEINE 200MG/ML 20% VIAL 4ML INH SCH ×2 (05:36→08:49)
[2017-05-23 08:00] VITALS: BP 95/49
[2017-05-23 08:10] VITALS: BP 95/49
[2017-05-23] MEDS: MEGESTROL ACETATE 400 MG/10 ML UDC PO SCH (09:04)
[2017-05-23] MEDS: LEVOFLOXACIN 500MG TABLET PO SCH (10:48)
[2017-05-23 12:00] VITALS: BP 104/59
== END 2017-05-23 13:00 | disposition home or self-care (01) | DRG 140 ==
LOC: ER 20:41 → 7WST 05-17 02:10 → EDBEDREQ 05-17 05:48 → EDBEDREQTM 05-17 05:48 → EDBEDREQDT 05-17 05:48 → ENRESERV 05-17 07:42
PROVIDERS: ADMIT Internal Medicine; ATTEND Internal Medicine
PROC: 5A09357 Assistance with Respiratory Ventilation, Less than 24 Consecutive Hours, Continuous Positive Airway Pressure (ICD-10-PCS; principal; 2017-05-19)
PROC: 5A09357 Assistance with Respiratory Ventilation, Less than 24 Consecutive Hours, Continuous Positive Airway Pressure (ICD-10-PCS; 2017-05-20)
PROC: 5A09357 Assistance with Respiratory Ventilation, Less than 24 Consecutive Hours, Continuous Positive Airway Pressure (ICD-10-PCS; 2017-05-21)
DX: J44.1 Chronic obstructive pulmonary disease with (acute) exacerbation (principal); J96.21 Acute and chronic respiratory failure with hypoxia; J18.9 Pneumonia, unspecified organism; E44.0 Moderate protein-calorie malnutrition; E87.2 Acidosis; Z99.81 Dependence on supplemental oxygen; J96.22 Acute and chronic respiratory failure with hypercapnia; F31.9 Bipolar disorder, unspecified; F41.9 Anxiety disorder, unspecified; D64.9 Anemia, unspecified; J98.01 Acute bronchospasm; Z91.19 Patient's noncompliance with other medical treatment and regimen; Z79.899 Other long term (current) drug therapy; Z88.8 Allergy status to other drugs, medicaments and biological substances; Z87.440 Personal history of urinary (tract) infections; Z68.22 Body mass index [BMI] 22.0-22.9, adult
CPT/HCPCS: 36415; 36600; 71010; 80048; 80053; 82375; 82805; 83605; 83880; 84443; 84484; 85025; 87040; 93005; 94640; 94660; 96374; 96375; 99285; A6261; J1956; J2270; J2405; J2920; J3490; J7040; J7512; J7608; J7611; J7620; J7626

== ENCOUNTER 2017-06-10 17:39 | Emergency (ER) | payer MEDICAID ==
[~2017-06-10] VITALS: Ht 177.8 cm; Wt 60.0 kg
[2017-06-10] MEDS ORDERED: IPRATROPIUM BROMIDE (0.02%) 0.5MG/2.5ML NEB HHN STA (21:21)
[2017-06-10] MEDS ORDERED: METHYLPREDNISOLONE SOD SUCC 125 MG/2 ML VIAL IV STA (21:21)
[2017-06-10] MEDS ORDERED: ALBUTEROL (0.083%) 2.5MG/3ML NEB HHN STA (21:21)
[2017-06-10 22:01] LABS: BASOPHILS % 0.6 % (0.0-2.0); HEMATOCRIT. 32.9 % (36.0-48.0); HEMOGLOBIN. 10.5 g/dL (12.0-16.0); LYMPHOCYTES % 18.5 % (20.0-50.0); MEAN CORPUSCULAR HEMOGLOBIN 26.2 pg (28.0-32.0); MEAN CORPUSCULAR VOLUME 81.9 fL (81.0-99.0); MONOCYTES % 12.6 % (2.0-8.0); NEUTROPHILS % 63.3 % (40.0-76.0); PLATELET 168 x1000/uL (130-400); RED BLOOD CELL COUNT 4.02 mill/uL (4.2-5.4); RED CELL DISTRIBUTION WIDTH 17.5 % (11.6-14.6)
[2017-06-10 22:06] LABS: CHLORIDE 99 mEq/L (98-107); PROTHROMBIN TIME 10.9 sec (9.4-11.6)
[2017-06-10 22:14] LABS: CARBON DIOXIDE 35 mEq/L (21-32)
[2017-06-11] MEDS ORDERED: ACETAMINOPHEN 500MG TABLET PO ONE (00:15)
[2017-06-11] MEDS ORDERED: THEOPHYLLINE ANHYDROUS 80 MG/15 ML 120ML PO SCH (01:45)
[2017-06-11] MEDS ORDERED: MORPHINE SULFATE 10 MG/ML CPJ IM ONE (02:15)
[2017-06-11 04:40] VITALS: BP 126/57
== END 2017-06-11 05:13 | disposition home or self-care (01) ==
LOC: ER 17:44 → CMPBEDREQ 06-11 00:44 → EDBEDREQ 06-11 00:44 → ER 06-11 05:13
DX: J44.1 Chronic obstructive pulmonary disease with (acute) exacerbation (principal); M79.1 Myalgia; I50.9 Heart failure, unspecified; Z99.81 Dependence on supplemental oxygen; Z88.6 Allergy status to analgesic agent; Z88.8 Allergy status to other drugs, medicaments and biological substances
CPT/HCPCS: 36415; 71045; 80053; 85025; 85610; 93005; 94640; 96372; 99285; J2270; J7611; Z7610

== ENCOUNTER 2017-06-12 20:04 | Inpatient (IN) | payer MEDICAID ==
[~2017-06-12] VITALS: Ht 177.8 cm; Wt 65.3 kg
[2017-06-12] MEDS ORDERED: ONDANSETRON HCL 4MG/2ML VIAL IV STA (22:31)
[2017-06-12] MEDS ORDERED: MORPHINE SULFATE 4 MG/ML CPJ (NOT FOR IM USE) IV STA (22:31)
[2017-06-12] MEDS ORDERED: METHYLPREDNISOLONE SOD SUCC 125 MG/2 ML VIAL IV STA (22:31)
[2017-06-12] MEDS ORDERED: MAGNESIUM 2 G PREMIX 50 ML IV ONE (22:45)
[2017-06-12] MEDS ORDERED: LEVOFLOXACIN 750MG PREMIX 150 ML IV ONE (22:45)
[2017-06-12] MEDS ORDERED: IPRATROPIUM/ALBUTEROL 0.5-3(2.5)MG/3ML NEB HHN ONE (22:45)
[2017-06-12] MEDS ORDERED: LIDOCAINE HCL/EPINEPHRINE 1%-EPI 1:100,000 50 ML VIAL INFIL ONE (23:45)
[2017-06-12 23:51] LABS: BG BASE EXCESS 10.1 mmol/L (-2.0-2.0); BG CARBOXYHEMOGLOBIN 0.1 % (0.5-1.5); BG DEOXYHEMOGLOBIN 2.5 % (0.0-5.0); BG FRACTION INSPIRED OXYGEN 28; BG METHEMOGLOBIN 0.3 % (0.0-1.5); BG OXYGEN SATURATION 97.5 % (92.0-98.5); BG OXYHEMOGLOBIN 97.1 % (94.0-97.0); BG PH 7.295 (7.350-7.450); BG PO2 105.6 mmHg (75.0-100.0); BG SAMPLE SITE RIGHT RADIAL; BG TOTAL HEMOGLOBIN 10.5 g/dL (12.0-18.0); BG VENT MODE NASAL CANNULA
[2017-06-12 23:55] LABS: BASOPHILS % 0.7 % (0.0-2.0); HEMATOCRIT. 30.6 % (36.0-48.0); HEMOGLOBIN. 9.8 g/dL (12.0-16.0); LYMPHOCYTES % 21.6 % (20.0-50.0); MEAN CORPUSCULAR HEMOGLOBIN 26.3 pg (28.0-32.0); MEAN CORPUSCULAR VOLUME 82.3 fL (81.0-99.0); MONOCYTES % 11.1 % (2.0-8.0); NEUTROPHILS % 62.6 % (40.0-76.0); PLATELET 199 x1000/uL (130-400); RED BLOOD CELL COUNT 3.72 mill/uL (4.2-5.4); RED CELL DISTRIBUTION WIDTH 17.1 % (11.6-14.6)
[2017-06-13 00:02] LABS: INR 1.1; PARTIAL THROMBOPLASTIN TIME 23.6 sec (23.4-31.0); PROTHROMBIN TIME 11.1 sec (9.4-11.6)
[2017-06-13 00:08] LABS: CARBON DIOXIDE 37 mEq/L (21-32); CHLORIDE 96 mEq/L (98-107); CREATINE KINASE 26 IU/L (26-192)
[2017-06-13 00:12] LABS: TROPONIN I < 0.02 ng/mL (0.00-0.04)
[2017-06-13 09:40] VITALS: BP 111/73
[2017-06-13] MEDS ORDERED: LIDOCAINE HCL/PF 1% 2ML VIAL ONE (10:32)
[2017-06-13 11:38] VITALS: BP 115/72
[2017-06-13] MEDS ORDERED: PROMETHAZINE PO (12:25)
[2017-06-13] MEDS ORDERED: CODEINE PO (12:25)
[2017-06-13] MEDS ORDERED: HYDR-4009 PO (12:25)
[2017-06-13 16:32] VITALS: BP 101/65
[2017-06-13 17:18] VITALS: BP 101/65
== END 2017-06-13 17:50 | disposition home or self-care (01) | DRG 140 ==
LOC: ER 21:10 → 6WST 06-13 00:42 → EDBEDREQ 06-13 00:46 → EDBEDREQDT 06-13 00:46 → EDBEDREQTM 06-13 00:46 → ENRESERV 06-13 06:59 → 6WST 06-13 10:23
PROVIDERS: ADMIT Internal Medicine; ATTEND Internal Medicine
PROC: 5A09357 Assistance with Respiratory Ventilation, Less than 24 Consecutive Hours, Continuous Positive Airway Pressure (ICD-10-PCS; principal; 2017-06-13)
DX: J44.1 Chronic obstructive pulmonary disease with (acute) exacerbation (principal); J96.10 Chronic respiratory failure, unspecified whether with hypoxia or hypercapnia; Z99.81 Dependence on supplemental oxygen; F20.9 Schizophrenia, unspecified; F42.9 Obsessive-compulsive disorder, unspecified; Z87.891 Personal history of nicotine dependence; Z88.8 Allergy status to other drugs, medicaments and biological substances
CPT/HCPCS: 36415; 36600; 71045; 80053; 82375; 82550; 82805; 83605; 83690; 84484; 85025; 85610; 85730; 87040; 93005; 94640; 94660; 96365; 96368; 96375; 99285; J1956; J2270; J2405; J2930; J3475; J3490; J7620

== ENCOUNTER 2017-07-24 22:53 | Observation (INO) | payer MEDICAID, OTHER ==
[~2017-07-24] VITALS: Ht 175.3 cm; Wt 69.9 kg
[~2017-07-24 22:53] MED LIST changes: +CODEINE PO; +FLUT1DIS3 IH; +HYDR-4009 PO; -P20 PO; +P50 PO; +PROMETHAZINE PO
[2017-07-24] MEDS ORDERED: ALBUTEROL (0.083%) 2.5MG/3ML NEB HHN STA (23:11)
[2017-07-24] MEDS ORDERED: IPRATROPIUM BROMIDE (0.02%) 0.5MG/2.5ML NEB HHN STA (23:11)
[2017-07-24] MEDS ORDERED: DEXAMETHASONE 10 MG/ML VIAL IV ONE (23:15)
[2017-07-24 23:55] LABS: BASOPHILS % 0.7 % (0.0-2.0); EOSINOPHILS % 3.4 % (0.0-5.0); HEMATOCRIT. 31.5 % (36.0-48.0); HEMOGLOBIN. 9.9 g/dL (12.0-16.0); LYMPHOCYTES % 19.4 % (20.0-50.0); MEAN CORPUSCULAR VOLUME 79.5 fL (81.0-99.0); MEAN PLATELET VOLUME 8.7 fl (7.4-10.4); MONOCYTES % 12.8 % (2.0-8.0); NEUTROPHILS % 63.7 % (40.0-76.0); PLATELET 227 x1000/uL (130-400); RED BLOOD CELL COUNT 3.97 mill/uL (4.2-5.4); RED CELL DISTRIBUTION WIDTH 15.3 % (11.6-14.6)
[2017-07-24 23:56] LABS: PROTHROMBIN TIME 10.7 sec (9.4-11.6)
[2017-07-24 23:58] LABS: CHLORIDE 95 mEq/L (98-107)
[2017-07-25 00:04] LABS: TROPONIN I < 0.02 ng/mL (0.00-0.04)
[2017-07-25] MEDS: METHYLPREDNISOLONE SOD SUCC 40 MG/ML VIAL IV SCH ×2 (00:35→14:30)
[2017-07-25] MEDS ORDERED: KETOROLAC 30MG/ML VIAL IV ONE (00:45)
[2017-07-25] MEDS ORDERED: AZITHROMYCIN 500 MG in DEXT 5% WATER 250 ML IV SCH (06:15)
[2017-07-25] MEDS ORDERED: CEFTRIAXONE 1 G PREMIX 50 ML IV ONE (06:15)
[2017-07-25] MEDS ORDERED: AZITHROMYCIN 500 MG in SODIUM CHLORIDE 0.9% 250 ML IV SCH (06:30)
[2017-07-25 12:00] VITALS: BP 94/62
[2017-07-25] MEDS ORDERED: IPRATROPIUM/ALBUTEROL 0.5-3(2.5)MG/3ML NEB HHN PRN (14:30)
[2017-07-25] MEDS ORDERED: MEDICATION NOT ON FORMULARY EA (Ipratropium Bromide (Atrovent Hfa) 2 PUFF) INH PRN (14:45)
[2017-07-25] MEDS ORDERED: LORAZEPAM 1MG TABLET PO PRN (14:45)
[2017-07-25] MEDS ORDERED: IPRATROPIUM/ALBUTEROL 0.5-3(2.5)MG/3ML NEB HHN SCH (14:45)
[2017-07-25] MEDS: IPRATROPIUM/ALBUTEROL 0.5-3(2.5)MG/3ML NEB HHN SCH ×3 (15:00→20:56)
[2017-07-25] MEDS ORDERED: GUAIFENESIN/CODEINE 200-20MG/10ML UDC PO PRN (15:00)
[2017-07-25] MEDS: BUDESONIDE 0.5MG/2ML NEB HHN SCH ×2 (15:19→20:40)
[2017-07-25 15:30] VITALS: BP 99/57
[2017-07-25] MEDS: HYDROCODONE/ACETAMINOPHEN 10/325MG TABLET PO PRN (15:38)
[2017-07-25] MEDS: MULTIVITAMINS,THER W-MINERALS TABLET PO SCH (15:38)
[2017-07-25] MEDS ORDERED: LORAZEPAM 0.5MG TABLET PO PRN (16:30)
[2017-07-25] MEDS ORDERED: ONDANSETRON HCL 4MG/2ML VIAL IV PRN (16:30)
[2017-07-25] MEDS ORDERED: DOCUSATE SODIUM 100MG CAPSULE PO PRN (16:30)
[2017-07-25] MEDS ORDERED: HYDROCODONE/ACETAMINOPHEN 5/325MG TABLET PO PRN (16:30)
[2017-07-25] MEDS ORDERED: ACETAMINOPHEN 325MG TABLET PO PRN (16:30)
[2017-07-25] MEDS ORDERED: DIPHENHYDRAMINE 50MG/ML VIAL IV PRN (16:30)
[2017-07-25] MEDS ORDERED: NA PHOS,M-B/NA PHOS,DI-BA ENEMA 118ML PR PRN (16:30)
[2017-07-25] MEDS ORDERED: CLONIDINE 0.1MG TABLET PO PRN (16:30)
[2017-07-25 16:43] LABS: BG CARBOXYHEMOGLOBIN 0.4 % (0.5-1.5); BG DEOXYHEMOGLOBIN 2.3 % (0.0-5.0); BG FRACTION INSPIRED OXYGEN 28; BG HCO3 ACT 41.6 mmol/L (22.0-26.0); BG METHEMOGLOBIN 0.2 % (0.0-1.5); BG OXYGEN SATURATION 97.7 % (92.0-98.5); BG OXYHEMOGLOBIN 97.1 % (94.0-97.0); BG PCO2 65.6 mmHg (35.0-45.0); BG SAMPLE SITE RIGHT RADIAL; BG TOTAL HEMOGLOBIN 9.3 g/dL (12.0-18.0); BG VENT MODE NASAL CANNULA
[2017-07-25] MEDS ORDERED: THEOPHYLLINE ANHYDROUS 100 MG PO SCH (17:00)
[2017-07-25] MEDS ORDERED: MEDICATION NOT ON FORMULARY EA (Fluticasone/Salmeterol (Advair 250-50 Diskus) 1 EACH) IH SCH (17:00)
[2017-07-25] MEDS ORDERED: PNEUMOCOCCAL 23-VAL P-SAC VAC 0.5 ML IM ONE (17:15)
[2017-07-25] MEDS ORDERED: ENOXAPARIN 40MG/0.4ML SYR SUBCUT SCH (18:00)
[2017-07-25] MEDS: THEOPHYLLINE ANHYDROUS 80 MG/15 ML 120ML PO SCH (18:33)
[2017-07-25 20:00] VITALS: BP 2/48
[2017-07-26] MEDS: HYDROCODONE/ACETAMINOPHEN 10/325MG TABLET PO PRN (00:11)
[2017-07-26] MEDS: IPRATROPIUM/ALBUTEROL 0.5-3(2.5)MG/3ML NEB HHN SCH ×5 (00:35→16:09)
[2017-07-26 04:00] VITALS: BP 2/95
[2017-07-26] MEDS: METHYLPREDNISOLONE SOD SUCC 40 MG/ML VIAL IV SCH ×2 (06:00→13:23)
[2017-07-26] MEDS: THEOPHYLLINE ANHYDROUS 80 MG/15 ML 120ML PO SCH ×3 (06:31→17:31)
[2017-07-26 06:56] LABS: BASOPHILS % 0.9 % (0.0-2.0); EOSINOPHILS % 2.7 % (0.0-5.0); HEMATOCRIT. 24.8 % (36.0-48.0); HEMOGLOBIN. 7.8 g/dL (12.0-16.0); LYMPHOCYTES % 26.8 % (20.0-50.0); MEAN CORPUSCULAR HEMOGLOBIN 24.8 pg (28.0-32.0); MEAN CORPUSCULAR VOLUME 78.8 fL (81.0-99.0); MEAN PLATELET VOLUME 9.1 fl (7.4-10.4); MONOCYTES % 11.3 % (2.0-8.0); NEUTROPHILS % 58.3 % (40.0-76.0); PLATELET 185 x1000/uL (130-400); RED BLOOD CELL COUNT 3.15 mill/uL (4.2-5.4); RED CELL DISTRIBUTION WIDTH 15.3 % (11.6-14.6)
[2017-07-26 07:09] LABS: CHLORIDE 95 mEq/L (98-107)
[2017-07-26] MEDS: BUDESONIDE 0.5MG/2ML NEB HHN SCH (07:30)
[2017-07-26 08:00] VITALS: BP 128/64
[2017-07-26] MEDS: MULTIVITAMINS,THER W-MINERALS TABLET PO SCH (09:03)
[2017-07-26 12:00] VITALS: BP 132/70
[2017-07-26 16:00] VITALS: BP 104/68
[2017-07-26 16:04] VITALS: BP 130/70
== END 2017-07-26 20:25 | disposition home or self-care (01) ==
LOC: ER 22:57 → INTOOBSV 07-25 00:40 → 6WST 07-25 00:40 → CANRESERV 07-25 07:30 → ENRESERV 07-25 07:30
PROVIDERS: ADMIT Internal Medicine; ATTEND Internal Medicine
DX: J44.1 Chronic obstructive pulmonary disease with (acute) exacerbation (principal); J45.909 Unspecified asthma, uncomplicated; F20.9 Schizophrenia, unspecified; Z91.14 Patient's other noncompliance with medication regimen; Z91.19 Patient's noncompliance with other medical treatment and regimen; Z99.81 Dependence on supplemental oxygen
CPT/HCPCS: 36415; 36600; 71045; 80048; 80053; 80198; 82375; 82805; 83605; 83880; 84484; 85025; 85610; 86850; 86900; 86901; 87040; 93005; 94640; 96365; 96366; 96368; 96372; 96375; 99285; G0378; J0456; J0696; J1100; J1650; J1885; J7611; J7620; J7050; J7060; J7626

== ENCOUNTER 2017-08-05 21:31 | Observation (INO) | payer MEDICAID, OTHER ==
[~2017-08-05] VITALS: Ht 167.6 cm; Wt 53.8 kg
[2017-08-05] MEDS ORDERED: SODIUM CHLORIDE 0.9% 1,000 ML IV ONE (22:26)
[2017-08-05] MEDS ORDERED: ONDANSETRON HCL 4MG/2ML VIAL IV STA (22:26)
[2017-08-05] MEDS ORDERED: MECLIZINE 25MG TABLET PO ONE (22:30)
[2017-08-05 22:52] LABS: BASOPHILS % 0.9 % (0.0-2.0); EOSINOPHILS % 4.9 % (0.0-5.0); HEMATOCRIT. 32.3 % (36.0-48.0); HEMOGLOBIN. 10.3 g/dL (12.0-16.0); LYMPHOCYTES % 21.5 % (20.0-50.0); MEAN CORPUSCULAR HEMOGLOBIN 25.2 pg (28.0-32.0); MEAN CORPUSCULAR VOLUME 79.3 fL (81.0-99.0); MEAN PLATELET VOLUME 8.5 fl (7.4-10.4); MONOCYTES % 8.5 % (2.0-8.0); NEUTROPHILS % 64.2 % (40.0-76.0); PLATELET 206 x1000/uL (130-400); RED BLOOD CELL COUNT 4.08 mill/uL (4.2-5.4); RED CELL DISTRIBUTION WIDTH 15.5 % (11.6-14.6)
[2017-08-05 22:55] LABS: HCG SCREEN NEGATIVE
[2017-08-05 22:58] LABS: PROTHROMBIN TIME 10.7 sec (9.4-11.6)
[2017-08-05 23:03] LABS: CHLORIDE 94 mEq/L (98-107); ETHANOL BLOOD < 10 mg/dL
[2017-08-05 23:04] LABS: AMMONIA 27 uMol/L (<32)
[2017-08-06] VITALS (7 sets, daily range): BP systolic 91–108; BP diastolic 45–67
[2017-08-06 00:44] LABS: CLARITY URINE TURBID (CLEAR); COLOR URINE YELLOW (YELLOW); KETONES URINE NEGATIVE (NEGATIVE); LEUKOCYTE ESTERASE URINE 1+ (NEGATIVE); NITRITE URINE NEGATIVE (NEGATIVE); OCCULT BLOOD URINE NEGATIVE (NEGATIVE); PH URINE >=9.0 (4.5-8.0); PROTEIN URINE NEGATIVE (NEGATIVE); SPECIFIC GRAVITY URINE 1.017 (1.005-1.030)
[2017-08-06] MEDS ORDERED: ACETAMINOPHEN 325MG TABLET PO ONE (01:00)
[2017-08-06 01:05] LABS: *AMPHETAMINES SCREEN URINE NEGATIVE (NEGATIVE); *BARBITURATES SCREEN URINE NEGATIVE (NEGATIVE); *BENZODIAZEPINES SCREEN URINE NEGATIVE (NEGATIVE); *COCAINE SCREEN URINE NEGATIVE (NEGATIVE); CANNABINOID URINE SCREEN NEGATIVE (NEGATIVE); METHADONE URINE SCREEN NEGATIVE (NEGATIVE); OPIATES URINE SCREEN PRESUMTIVE POSITIVE (NEGATIVE); PHENCYCLIDINE URINE SCREEN NEGATIVE (NEGATIVE)
[2017-08-06] MEDS ORDERED: CEFTRIAXONE 1 G PREMIX 50 ML IV NR (01:45)
[2017-08-06] MEDS ORDERED: AZITHROMYCIN 500 MG in DEXT 5% WATER 250 ML IV NR (01:45)
[2017-08-06] MEDS ORDERED: ACETAMINOPHEN 325MG TABLET PO PRN (14:00)
[2017-08-06] MEDS ORDERED: DIPHENHYDRAMINE 50MG/ML VIAL IV PRN (14:00)
[2017-08-06] MEDS ORDERED: NA PHOS,M-B/NA PHOS,DI-BA ENEMA 118ML PR PRN (14:00)
[2017-08-06] MEDS ORDERED: TRAMADOL 50MG TABLET PO PRN (14:00)
[2017-08-06] MEDS ORDERED: IPRATROPIUM/ALBUTEROL 0.5-3(2.5)MG/3ML NEB ORI PRN (14:00)
[2017-08-06] MEDS ORDERED: DOCUSATE SODIUM 100MG CAPSULE PO PRN (14:00)
[2017-08-06] MEDS ORDERED: MAGNESIUM/ALUMINUM HYDROXIDE/SIMETHICONE 30ML UDC PO PRN (14:00)
[2017-08-06] MEDS ORDERED: CLONIDINE 0.1MG TABLET PO PRN (14:00)
[2017-08-06] MEDS ORDERED: ONDANSETRON HCL 4MG/2ML VIAL IV PRN (14:00)
[2017-08-06] MEDS ORDERED: IPRATROPIUM/ALBUTEROL 0.5-3(2.5)MG/3ML NEB HHN PRN (14:15)
[2017-08-06] MEDS: LORAZEPAM 1MG TABLET PO PRN ×2 (15:01→23:09)
[2017-08-06 15:23] LABS: CHLORIDE 97 mEq/L (98-107)
[2017-08-06] MEDS: IPRATROPIUM/ALBUTEROL 0.5-3(2.5)MG/3ML NEB HHN SCH ×2 (16:01→20:23)
[2017-08-06] MEDS: THEOPHYLLINE ANHYDROUS 80 MG/15 ML 120ML PO SCH ×2 (18:05→20:57)
[2017-08-06] MEDS: GUAIFENESIN 600MG ER TABLET PO SCH (20:56)
[2017-08-06] MEDS: CEFTRIAXONE 1 G PREMIX 50 ML IV SCH (20:56)
[2017-08-07] MEDS: IPRATROPIUM/ALBUTEROL 0.5-3(2.5)MG/3ML NEB HHN SCH ×4 (01:38→19:42)
[2017-08-07 04:00] VITALS: BP 97/51
[2017-08-07 07:39] LABS: EOSINOPHILS % 5.1 % (0.0-5.0); HEMATOCRIT. 28.3 % (36.0-48.0); HEMOGLOBIN. 8.9 g/dL (12.0-16.0); LYMPHOCYTES % 24.2 % (20.0-50.0); MEAN CORPUSCULAR HEMOGLOBIN 25.1 pg (28.0-32.0); MEAN CORPUSCULAR VOLUME 79.6 fL (81.0-99.0); MEAN PLATELET VOLUME 9.2 fl (7.4-10.4); MONOCYTES % 11.8 % (2.0-8.0); NEUTROPHILS % 57.9 % (40.0-76.0); PLATELET 189 x1000/uL (130-400); RED BLOOD CELL COUNT 3.55 mill/uL (4.2-5.4); RED CELL DISTRIBUTION WIDTH 15.7 % (11.6-14.6)
[2017-08-07 08:00] VITALS: BP 114/60
[2017-08-07] MEDS: ASPIRIN 81MG EC TABLET PO SCH (09:01)
[2017-08-07] MEDS: THEOPHYLLINE ANHYDROUS 80 MG/15 ML 120ML PO SCH ×4 (09:01→20:22)
[2017-08-07] MEDS: MEGESTROL ACETATE 400 MG/10 ML UDC PO SCH (09:01)
[2017-08-07] MEDS: GUAIFENESIN 600MG ER TABLET PO SCH ×2 (09:01→20:21)
[2017-08-07 12:00] VITALS: BP 108/65
[2017-08-07 16:00] VITALS: BP 112/71
[2017-08-07] MEDS: GUAIFENESIN 200MG/10ML SUGAR FREE UDC PO PRN ×2 (17:38→22:10)
[2017-08-07 20:00] VITALS: BP 130/58
[2017-08-07] MEDS: LORAZEPAM 1MG TABLET PO PRN (20:21)
[2017-08-07] MEDS: CEFTRIAXONE 1 G PREMIX 50 ML IV SCH (20:22)
[2017-08-07] MEDS ORDERED: HYDROCODONE/ACETAMINOPHEN 5/325MG TABLET PO PRN (22:00)
[2017-08-08 00:40] VITALS: BP 104/61
[2017-08-08] MEDS: IPRATROPIUM/ALBUTEROL 0.5-3(2.5)MG/3ML NEB HHN SCH ×2 (01:26→08:53)
[2017-08-08 04:00] VITALS: BP 113/64
[2017-08-08 08:00] VITALS: BP 104/57
[2017-08-08] MEDS: THEOPHYLLINE ANHYDROUS 80 MG/15 ML 120ML PO SCH ×2 (09:20→13:58)
[2017-08-08] MEDS: MEGESTROL ACETATE 400 MG/10 ML UDC PO SCH (09:20)
[2017-08-08] MEDS: ASPIRIN 81MG EC TABLET PO SCH (09:20)
[2017-08-08] MEDS: GUAIFENESIN 600MG ER TABLET PO SCH (09:20)
[2017-08-08 12:00] VITALS: BP 111/58
[2017-08-08 14:20] VITALS: BP 111/58
[2017-08-08 16:00] VITALS: BP 107/61
[2017-08-08] MEDS: LORAZEPAM 1MG TABLET PO PRN ×2 (16:27→16:28)
[2017-08-08] MEDS ORDERED: LORAZEPAM 0.5MG TABLET PO NR (16:30)
[2017-08-12] MEDS ORDERED: MEGE20TA2 GT (09:01)
== END 2017-08-08 17:57 | disposition home or self-care (01) ==
LOC: ER 21:58 → 6WST 08-06 01:47 → INTOOBSV 08-06 01:47 → CANRESERV 08-06 02:01 → ENRESERV 08-06 02:01 → 6WST 08-06 04:30
PROVIDERS: ADMIT Internal Medicine; ATTEND Internal Medicine
DX: J44.9 Chronic obstructive pulmonary disease, unspecified (principal); D50.9 Iron deficiency anemia, unspecified; E11.9 Type 2 diabetes mellitus without complications; F20.9 Schizophrenia, unspecified; F42.9 Obsessive-compulsive disorder, unspecified; I10 Essential (primary) hypertension; Z79.899 Other long term (current) drug therapy; Z91.19 Patient's noncompliance with other medical treatment and regimen; Z99.81 Dependence on supplemental oxygen
CPT/HCPCS: 36415; 70450; 70551; 71045; 80048; 80053; 80305; 80307; 80329; 81003; 81025; 82140; 82962; 83605; 84443; 84484; 84703; 85025; 85610; 87040; 93005; 94640; 94664; 96361; 96365; 96367; 96375; 96376; 99285; G0378; G0482; J0456; J0696; J2405; J7030; J7040; J7620; C1893; J7060; J8597